=== PATIENT | female | born 1980 | race Caucasian/White ===

== ENCOUNTER 2017-08-22 18:26 | Outpatient (CLI) | payer MEDICAID ==
[~2017-08-22] VITALS: Ht 162.6 cm; Wt 114.3 kg
[2017-08-22] MEDS ORDERED: ONDA4TAB8 SL (18:53)
[2017-08-22] MEDS ORDERED: ACET-789 PO (18:53)
[2017-08-22] MEDS ORDERED: PREN-37 PO (18:53)
[2017-08-22 19:00] VITALS: BP 124/68
[2017-08-22 19:20] VITALS: BP 120/69
--- NOTE | 2017-08-23 20:57 | Physician Query-Final Dx ---
ANIRUDH HERNANDEZ 08/23/17 2057: Clinic Account Progress/Dx Physician Query: Please give diagnosis Date of Service Aug 22, 2017 at 18:26 JOSSE FERNANDEZ DO 08/25/17 1631: Clinic Account Progress/Dx DIAGNOSIS: Diagnosis Gestational Edema, Third Trimester - O12.03 37 weeks gestation of - Z3A.37 False Labor, Unspecified - O47.9 ANIRUDH HERNANDEZ Aug 23, 2017 20:57 JOSSE FERNANDEZ DO August 25, 2017 16:31
== END 2017-08-22 20:13 | disposition home or self-care (01) ==
LOC: WSo 18:26 → LDRP 18:27 → WSo 20:13
PROVIDERS: ATTEND Family Medicine
DX: O12.03 Gestational edema, third trimester (principal); O47.1 False labor at or after 37 completed weeks of gestation; Z3A.37 37 weeks gestation of pregnancy
CPT/HCPCS: 99213

== ENCOUNTER 2018-09-07 07:05 | Inpatient (IN) | payer MEDICAID ==
[2018-09-07] VITALS (71 sets, daily range): BP systolic 85–139; BP diastolic 46–106
[~2018-09-07] VITALS: Ht 162.6 cm; Wt 113.9 kg
[~2018-09-07 07:05] MED LIST: ACET-789 PO; ONDA4TAB8 SL; PREN-37 PO
--- NOTE | 2018-09-07 07:05 | NUR ---
ROSA M HESS presented to unit via ambulation from home, accompanied by SO, for INDUCTION. ROSA M HESS weighed, gowned, voided, and to bed. EFHM and TOCO applied, VS taken. ROSA M HESS oriented to bed controls, call light, TV, heat, and A/C controls.
--- OUTSIDE RECORDS SUMMARY | 2018-09-07 07:17 | XMS REPORT | Continuity of Care Document ---
Author Author Chrissy Espinoza [facility] Chrissy Nithin [facility] Address Unknown Phone Unavailable Support Name Relationship Address Phone JEFF ENRIQUEZ M.D. Caregiver [facility] [address] [facility] [address] [place] [address] Unavailable WANDA GONSALVES Next Of Kin [address] [place], [place] [phone] Insurance Providers Guarantor Kareen Hess Address [address] [place] [address] Payer Self Pay Insurance Subscriber's Name Kareen Hess Relationship 01 Self / Same As Patient Advance Directives No advance directive information available. Chief Complaint and Reason for Visit Chief Complaint Abdominal Pain Reason for Visit First trimester Leukocytosis Nausea and vomiting during prior to 22 weeks gestation Intermittent lower abdominal pain Problems Active ProblemsNo active problem information available. Past Problems Medical Problem Onset Date Status Achilles tendinitis Unknown Acute Allergic reaction Unknown Acute First trimester Unknown Acute Intermittent lower abdominal pain Unknown Acute Leukocytosis Unknown Acute Nausea and vomiting during prior to 22 weeks gestation Unknown Acute Medications Current Home Medications Medication Dose Units Route Directions Days Qty Instructions Start Date Ondansetron Hcl (Zofran) 4 Mg Tab 4 Mg Oral Every 8 Hours As Needed for Nausea 14 Tablet 01/29/17 Vit W/ Ferrous Fumara () Tab 1 X Oral Vit W/ Ferrous Fumara ( Complete) Complete Tab 1 X Oral Daily for 30 Days 30 Tablet 01/29/17 Social History Social History Problem Response Recorded Date/Time Onset Date Status Smoking Status Heavy Tobacco Smoker 01/29/2017 3:49pm Not Applicable Not Applicable Smoking Status Start Date Stop Date Heavy Tobacco Smoker Hospital Discharge Instructions No hospital discharge instruction information available. Plan of Care Discharge Date 01/29/17 5:00pm Disposition 01 HOME, SELF-CARE Condition at Discharge Improved Instructions/Education Provided Nausea and Vomiting in (ED) Abdominal Pain in (ED) First Trimester (ED) Prescriptions See Medication Section Referrals ОЛЬГА MONTAÑO M.D. Address: [facility]. [place] [address] [place] [address] Note: Call to establish OB care during Additional Instructions/Education Take Zofran as prescribed for nausea. Take daily vitamins. Take Tylenol if needed for pain. Followup with your OB physician or one listed here. Return to the ER if you develop fevers or worsening lower abdominal pain. White blood cell count was elevated today, which can be common during , but make sure your doctor repeats this. Functional Status No functional status information available. Allergies, Adverse Reactions, Alerts Allergen Type Severity Reaction Status Last Updated Aspirin ([id number]) Allergy Unknown Nausea/Vomiting Active 11/19/16 Immunizations No immunization information available. Vital Signs Acute Vital Signs Vital Response Date/Time Blood Pressure 117/68 mm Hg 01/29/2017 5:09pm Blood Pressure Mean 84 mm Hg 01/29/2017 5:09pm Temperature (Fahrenheit) 97.8 degrees F (96.0 - 99.9) 01/29/2017 3:42pm Temperature (Calculated Celsius) 36.33521 degrees C 01/29/2017 3:42pm Temperature Source Oral 01/29/2017 3:42pm Pulse Pulse Rate: ED 100 bpm 01/29/2017 5:09pm Respiratory Rate 16 breaths per minute (10 - 20) 01/29/2017 5:09pm Height (Feet) 5 ft 01/29/2017 3:42pm Height (Inches) 4.0 in. 01/29/2017 3:42pm Weight (Pounds) 195.0 lbs 01/29/2017 3:42pm Height 5 ft 4 in 01/29/2017 3:42pm Weight 195 lb 01/29/2017 3:42pm Body Mass Index 33.5 kg/m^2 01/29/2017 3:42pm Results Laboratory Results Test Name Result Units Flags Reference Collection Date/Time Result Date/ Time Comments White Blood Count 17.7 K/uL H 5.0-10.0 01/29/2017 4:15pm 01/29/2017 4: 26pm Red Blood Count 4.90 M/uL 4.20-5.40 01/29/2017 4:15pm 01/29/2017 4: 26pm Hemoglobin 14.9 g/dL 12.0-16.0 01/29/2017 4:1501/29/2017 4:26pm Hematocrit 43.6 % 38.0-47.0 01/29/2017 4:1501/29/2017 4:26pm Mean Corpuscular Volume 89.0 fL 82.0-100.0 01/29/2017 4:15pm 2016 4:26pm Mean Corpuscular Hemoglobin 30.4 pg 26.0-33.0 01/29/2017 4:152016 4:26pm Mean Corpuscular Hemoglobin Concent 34.2 g/dL 31.0-36.0 01/29/2017 4: 1501/29/2017 4:26pm Red Cell Distribution Width 13.0 % 11.5-14.5 01/29/2017 4:152016 4:26pm RDW Standard Deviation 42.4 fL 36.4-46.3 01/29/2017 4:1501/29/2017 4 :26pm Platelet Count 300 K/uL 130-400 01/29/2017 4:1501/29/2017 4:26pm Mean Platelet Volume 9.2 fL 7.0-11.0 01/29/2017 4:15pm 01/29/2017 4: 26pm Neutrophils (%) (Auto) 67.4 % 42.0-75.0 01/29/2017 4:01/29/2017 4: 26pm Lymphocytes (%) (Auto) 24.4 % 16.0-44.0 01/29/2017 4:1501/29/2017 4: 26pm Monocytes (%) (Auto) 5.7 % 2.0-9.0 01/29/2017 4:1501/29/2017 4:26pm Eosinophils (%) (Auto) 1.6 % 0-7.0 01/29/2017 4:1501/29/2017 4:26pm Basophils (%) (Auto) 0.3 % 0-1 01/29/2017 4:1501/29/2017 4:26pm Immature Granulocyte % (Auto) 0.6 % H 0-0.5 01/29/2017 4:2016 4:26pm Nucleated Red Blood Cells % 0.0 /100WBC 0-0 01/29/2017 4:15pm 2016 4:26pm Neutrophils # (Auto) 11.9 K/uL H 1.9-8.0 01/29/2017 4:15pm 01/29/2017 4: 26pm Lymphocytes # (Auto) 4.3 K/uL 0.9-5.2 01/29/2017 4:15pm 01/29/2017 4: 26pm Monocytes # (Auto) 1.0 K/uL 0.16-1.0 01/29/2017 4:15pm 01/29/2017 4: 26pm Eosinophils # (Auto) 0.3 K/uL 0-0.8 01/29/2017 4:15pm 01/29/2017 4: 26pm Basophils # (Auto) 0.1 K/uL 0-0.2 01/29/2017 4:15pm 01/29/2017 4:26pm Immature Granulocyte # (Auto) 0.10 K/uL 0-0.40 01/29/2017 4:15pm 2016 4:26pm Nucleated Red Blood Cells # 0.00 K/uL 0.0-0.012 01/29/2017 4:15pm 01/29 4:26pm Urine Color YELLOW 01/29/2017 4:00pm 01/29/2017 4:30pm Urine Turbidity Negative Negative 01/29/2017 4:00pm 01/29/2017 4: 30pm Urine Specific [place] 1.019 1.000-1.050 01/29/2017 4:00pm 2016 4:30pm Urine Glucose (UA) Negative Negative 01/29/2017 4:00pm 01/29/2017 4: 30pm Urine Protein Negative Negative 01/29/2017 4:00pm 01/29/2017 4:30pm Urine Urobilinogen NORMAL Normal 01/29/2017 4:00pm 01/29/2017 4:30pm Urine Bilirubin Negative Negative 01/29/2017 4:00pm 01/29/2017 4: 30pm Urine pH 5.0 5.0-8.0 01/29/2017 4:00pm 01/29/2017 4:30pm Urine Ketones Negative Negative 01/29/2017 4:00pm 01/29/2017 4:30pm Urine Leukocyte Esterase Negative Negative 01/29/2017 4:00pm 2016 4:30pm Urine Blood Negative Negative 01/29/2017 4:00pm 01/29/2017 4:30pm NITRITE, URINE Negative Negative 01/29/2017 4:00pm 01/29/2017 4:30pm Urine RBC (Auto) 0.3 /hpf 0.0-2.0 01/29/2017 4:00pm 01/29/2017 4:30pm Urine WBC (Auto) 0.5 /hpf 0.0-5.0 01/29/2017 4:00pm 01/29/2017 4:30pm Urine Epithelial Cells (Auto) 1.1 /lpf 0.0-10.0 01/29/2017 4:00pm 01/29 4:30pm Urine Casts (Auto) 0.0 /lpf 0.0-10.0 01/29/2017 4:00pm 01/29/2017 4: 30pm Urine Bacteria (Auto) 27.1 /hpf 0.0-500.0 01/29/2017 4:00pm 01/29/2017 4:30pm Random Glucose 85 mg/dL 65-115 01/29/2017 4:15pm 01/29/2017 4:43pm Blood Urea Nitrogen 10 mg/dL 8-25 01/29/2017 4:15pm 01/29/2017 4:43pm Creatinine 0.61 mg/dL L 0.9-1.6 01/29/2017 4:15pm 01/29/2017 4:43pm Glomerular Filtration Rate Calc 112.28 mL/min 01/29/2017 4:15pm 01/29 4:43pm MULTIPLY RESULT BY 1.210 IF THE PATIENT IS -TOGOLESE Units are mL/min/1.73 m2 > 60 Normal kidney function 30-59 Moderately decreased kidney function 15-29 Severely decreased kidney function <15 End-stage kidney failure BUN/Creatinine Ratio 16.4 01/29/2017 4:15pm 01/29/2017 4:43pm Sodium Level 134 mEq/L 133-145 01/29/2017 4:15pm 01/29/2017 4:43pm Potassium Level 4.0 mEq/L 3.5-5.1 01/29/2017 4:15pm 01/29/2017 4:43pm Chloride Level 101 mEq/L 98-116 01/29/2017 4:15pm 01/29/2017 4:43pm Carbon Dioxide Level 26 mEq/L 22-34 01/29/2017 4:15pm 01/29/2017 4: 43pm Anion Gap 11.0 6-13 01/29/2017 4:15pm 01/29/2017 4:43pm Calcium Level 9.1 mg/dL 8.2-10.6 01/29/2017 4:15pm 01/29/2017 4:43pm Total Protein 7.7 gm/dL 6.0-8.4 01/29/2017 4:15pm 01/29/2017 4:43pm Albumin 3.8 gm/dL 3.2-5.0 01/29/2017 4:15pm 01/29/2017 4:43pm Globulin 3.9 gm/dL H 2.0-3.0 01/29/2017 4:15pm 01/29/2017 4:43pm Albumin/Globulin Ratio 1.0 L 1.4-2.4 01/29/2017 4:15pm 01/29/2017 4: 43pm Total Bilirubin 0.6 mg/dL 0.1-1.3 01/29/2017 4:15pm 01/29/2017 4:43pm Alkaline Phosphatase 93 U/L 35-125 01/29/2017 4:15pm 01/29/2017 4:43pm Aspartate Amino Transf (AST/SGOT) 21 U/L 5-40 01/29/2017 4:15pm 2016 4:43pm Alanine Aminotransferase (ALT/SGPT) 20 U/L 5-40 01/29/2017 4:15pm 01/29 4:43pm Lipase 31 U/L 8-57 01/29/2017 4:15pm 01/29/2017 4:43pm Human Chorionic Gonadotropin, Quant 83739 mIU/mL 01/29/2017 4:15pm 4:58pm INTERPRETATION: SUFFICIENT VARIABILITY EXISTS AMONG hCG CONCENTRATIONS THAT A SINGLE VALUE CANNOT BE USED TO DATE PREGNANCIES ACCURATELY, NOR CAN A SINGLE DETERMINATION BE USED TO PREDICT VIABILITY. RANGE OF EXPECTED VALUES: TIME POST CONCEPTION COMMON UNITS mIU/mL 7-10 DAYS >3.0 30 DAYS 100.0 TO 5,000.0 40 DAYS >2000.0 10 WEEKS 50,000.0 TO 140,000.0 14 WEEKS 10,000.0 TO 50,000.0 Procedures Procedure Status Date Provider(s) THER/PROPH/DIAG INJ SC/IM Completed 01/14/17 JEFF ENRIQUEZ M.D. Encounters Encounter Location Arrival/Admit Date Discharge/Depart Date Attending Provider Departed Emergency Room [facility] 01/29/17 3:40pm 5:00pm JEFF ENRIQUEZ M.D. Departed Emergency Room [facility] 01/14/17 4:19pm 4:38pm JEFF ENRIQUEZ M.D. Departed Emergency Room [facility] 11/19/16 5:31pm 6:45pm GIL SERRANO M.D. Recent Diagnosis
--- OUTSIDE RECORDS SUMMARY | 2018-09-07 07:17 | XMS REPORT ---
Author Author DEDRAJULIÁN [facility] Address [address] [place] [address] Care Team Providers Care Secretary To The Vice President Name Role Phone JULIÁN COLMENARES Unavailable PROBLEMS Unknown Problems ALLERGIES No Information ENCOUNTERS Encounter Location Date Diagnosis [facility] [address] [place] [address] August, [facility] [address] [place] [address] August, [facility] [address] [place] [address] August, [facility] [address] [place] [address] August, [facility] [address] [place] [address] Jul, [facility] [id number] [place] [phone] Jul, [facility] [address] [place] [address] Jul, [facility] [address] [place] [address] Jul, Morbid obesity E66.01 ; Supervision of other normal Z34.80 ; 33 weeks gestation of Z3A.33 and S/P tooth extraction K08.409 [facility] [address] [place] [id number] Jul, Caries K02.[address] [address] Jul, [facility] [address] [place] [address] Jun, Supervision of other normal Z34.80 ; Morbid obesity E66.01 ; 28 weeks gestation of Z3A.28 ; Dental examination Z01.20 and Mouth pain K13.79 [facility] [id number] [id number] Jun, Caries K02.9 and Dental examination Z01.20 [facility] [address] [address] Jun, 2018 [facility] [address] [place] [address] 18 Jun, 2018 Upper respiratory tract infection, unspecified type J06.9 and Morbid obesity E66.01 [facility] [address] [address] 14 Jun, 2018 in multigravida Z34.80 [facility] [address] [place] [address] Jun, [facility] [address] [place] [address] 12 Jun, 2018 Supervision of other normal Z34.80 ; Morbid obesity E66.01 and Mouth pain K13.79 [facility] [address] [place] [address] Jun, in multigravida Z34.80 [facility] [address] [place] [address] Jun, [facility] [address] [address] Jun, [facility] [address] [place] [address] Jun, in multigravida Z34.80 [facility] [address] [address] May, [facility] [id number] [place] [address] May, in multigravida Z34.80 and 28 weeks gestation of Z3A.28 [facility] [address] [address] 14 May, 2018 Dental examination Z01.20 and Caries K02.9 [facility] [address] [facility] [id number] [place] [address] 14 May, 2018 Mouth pain K13.79 [facility] [address] [facility] [id number] [place] [address] 14 May, 2018 IMMUNIZATIONS No Known Immunizations SOCIAL HISTORY Never Assessed REASON FOR VISIT Med Change PLAN OF CARE VITAL SIGNS MEDICATIONS Medication Instructions Dosage Frequency Start Date End Date Duration Status Cefdinir 300 MG Orally 2 times a day 1 capsule 12h Jun, 7 days Active RESULTS No Results PROCEDURES No Known procedures INSTRUCTIONS MEDICATIONS ADMINISTERED No Known Medications MEDICAL (GENERAL) HISTORY Type Description Date Medical History due August Surgical History tonsillectomy and adenoidectomy Hospitalization History Hemorrhage after delivery, required transfusion 2017 Hospitalization History childbirth only
--- OUTSIDE RECORDS SUMMARY | 2018-09-07 07:18 | XMS REPORT | Continuity of Care Document ---
Author Author Chrissy Espinoza [facility] Chrissy Espinoza [facility] Address Unknown Phone Unavailable Support Name Relationship Address Phone JEFF ENRIQUEZ M.D. Caregiver [facility] [address] [facility] [address] [place] [address] Unavailable WANDA GONSALVES Next [place] [address] Insurance Providers Guarantor Kareen Hess Address [address] [place] [address] Payer Self Pay Insurance Subscriber's Name Kareen Hess Relationship 01 Self / Same As Patient Advance Directives No advance directive information available. Chief Complaint and Reason for Visit Chief Complaint Rash Reason for Visit Allergic reaction Problems Active ProblemsNo active problem information available. Past Problems Medical Problem Onset Date Status Achilles tendinitis Unknown Acute Allergic reaction Unknown Acute Medications Current Home Medications Medication Dose Units Route Directions Days Qty Instructions Start Date Hydroxyzine Hcl (Atarax) 25 Mg Tab 25 Mg Oral Three Times A Day for Itch 15 Tablet 01/14/17 Prednisone 50 Mg Tab 50 Mg Oral Daily for Inflammation 4 Days 4 Tablet 01/14/17 Social History Social History Problem Response Recorded Date/Time Onset Date Status Smoking Status Heavy Tobacco Smoker 01/14/2017 4:23pm Not Applicable Not Applicable Smoking Status Start Date Stop Date Heavy Tobacco Smoker Hospital Discharge Instructions No hospital discharge instruction information available. Plan of Care Discharge Date 01/14/17 4:38pm Disposition 01 HOME, SELF-CARE Condition at Discharge Stable Instructions/Education Provided General Allergic Reaction (ED) Prescriptions See Medication Section Referrals SCOTT BOWERS M.D. Address: [address] [place] [address] Additional Instructions/Education Take steroids and Atarax as prescribed. Followup with PCP listed as needed. Return to emergency department if you develop difficulty speaking/breathing/swallowing, have skin peeling or blistering occur, or any other emergent or concerning symptoms develop. Functional Status No functional status information available. Allergies, Adverse Reactions, Alerts Allergen Type Severity Reaction Status Last Updated Aspirin ([id number]) Allergy Unknown Nausea/Vomiting Active 11/19/16 Immunizations No immunization information available. Vital Signs Acute Vital Signs Vital Response Date/Time Blood Pressure 114/75 mm Hg 01/14/2017 4:20pm Blood Pressure Mean 88 mm Hg 01/14/2017 4:20pm Temperature (Fahrenheit) 97.7 degrees F (96.0 - 99.9) 01/14/2017 4:20pm Temperature (Calculated Celsius) 36.88608 degrees C 01/14/2017 4:20pm Temperature Source Oral 01/14/2017 4:20pm Pulse Pulse Rate: ED 80 bpm 01/14/2017 4:20pm Respiratory Rate 16 breaths per minute (10 - 20) 01/14/2017 4:20pm Height (Feet) 5 ft 01/14/2017 4:20pm Height (Inches) 3.0 in. 01/14/2017 4:20pm Weight (Pounds) 190.0 lbs 01/14/2017 4:20pm Height 5 ft 3 in 01/14/2017 4:20pm Weight 190 lb 01/14/2017 4:20pm Body Mass Index 33.7 kg/m^2 01/14/2017 4:20pm Results No relevant diagnostic test, laboratory data and/or discharge summary information available. Procedures No procedure information available. Encounters Encounter Location Arrival/Admit Date Discharge/Depart Date Attending Provider Departed Emergency Room [facility] 01/14/17 4:19pm 4:38pm JEFF ENRIQUEZ M.D. Departed Emergency Room [facility] 11/19/16 5:31pm 6:45pm GIL SERRANO M.D. Recent Diagnosis
--- OUTSIDE RECORDS SUMMARY | 2018-09-07 07:18 | XMS REPORT ---
Author Author Rubi Garcia Organization [facility] Address [address] [place] [address] Care Team Providers Care Engineering Project Designer Name Role Phone Rubi Garcia Unavailable PROBLEMS Type Condition ICD9-CM Code [id number] Code Onset Dates Condition Status SNOMED Code Problem Amenorrhea, unspecified N91.2 Active [id number] ALLERGIES Substance Reaction Event Type Date Status asprin stomach upset Non Drug Allergy Mar, Active SOCIAL HISTORY Never Assessed PLAN OF CARE Activity Details Follow Up 4 Weeks Reason: Pending Test AFP Tetra VITAL SIGNS Height 63 in 2017-04-05 MEDICATIONS Medication Instructions Dosage Frequency Start Date End Date Duration Status Doxylamine-Pyridoxine 10-10 MG Orally Once a day 2 tablets at bedtime on an empty stomach 24h Jan, 30 day(s) Active - Orally Once a day 1 tablet 24h Active Zofran ODT 4 MG Orally every 8 hrs 1 tablet on the tongue and allow to dissolve 8h Active Clindamycin HCl 300 MG Orally every 8 hrs 1 capsule 8h Feb, 07 days Active RESULTS Name Result Date Reference Range Venipuncture 2017-04-05 PROCEDURES Procedure Date Ordered Result Body Site DRAW FEE Apr 05, 2017 IMMUNIZATIONS No Known Immunizations MEDICAL (GENERAL) HISTORY Type Description Date Surgical History tonsillectomy and adenoidectomy
--- OUTSIDE RECORDS SUMMARY | 2018-09-07 07:18 | XMS REPORT ---
Author Author Rubi Garcia Organization [facility] Address [address] [place] [address] Care Team Providers Care Geomorphologist Name Role Phone Rubi Garcia Unavailable PROBLEMS Type Condition ICD9-CM Code [id number] Code Onset Dates Condition Status SNOMED Code Problem Amenorrhea, unspecified N91.2 Active [id number] ALLERGIES No Information SOCIAL HISTORY Never Assessed PLAN OF CARE Activity Details Follow Up 4 Weeks Reason: VITAL SIGNS MEDICATIONS Medication Instructions Dosage Frequency Start Date End Date Duration Status Zofran ODT 4 MG Orally every 8 hrs 1 tablet on the tongue and allow to dissolve 8h Active Clindamycin HCl 300 MG Orally every 8 hrs 1 capsule 8h Feb, 07 days Active - Orally Once a day 1 tablet 24h Active Doxylamine-Pyridoxine 10-10 MG Orally Once a day 2 tablets at bedtime on an empty stomach 24h Jan, 30 day(s) Active RESULTS No Results PROCEDURES No Known procedures IMMUNIZATIONS No Known Immunizations MEDICAL (GENERAL) HISTORY Type Description Date Surgical History tonsillectomy and adenoidectomy
--- OUTSIDE RECORDS SUMMARY | 2018-09-07 07:18 | XMS REPORT | Continuity of Care Document ---
Author Organization Unknown Address Unknown Allergies There is no data. Medications There is no data. Problems There is no data. Procedures There is no data. Results Test Result Range A1C - 07/04/18 12:18 HEMOGLOBIN A1c 5.5 % of total Hgb <5.7 CULTURE, GROUP B STREP WITH SUSCEPTIBILITY - 08/24/18 15:11 CULTURE, GROUP B STREP WITH SUSCEPTIBILITY SEE NOTE NRG Encounters ACCT No. Visit Date/Time Discharge Status Pt. Type Provider Facility Loc./Unit Complaint [id number] 08/30/2018 14:30:00 08/30/2018 23:59:59 [facility] Outpatient NITA GUZMAN DO [facility] BENITA [id number] 08/24/2018 14:15:00 Document Registration [id number] 07/04/2018 12:00:00 Document Registration [id number] 03/05/2017 04:49:28 [facility] Unknown
--- OUTSIDE RECORDS SUMMARY | 2018-09-07 07:18 | XMS REPORT ---
Author Author Flo Tolbert Organization [facility] Address [address] [facility] [address] [place], [place] [id number] Care Team Providers Care Neonatal Intensive Care Nurse Name Role Phone Flo Tolbert Unavailable PROBLEMS Type Condition ICD9-CM Code [id number] Code Onset Dates Condition Status SNOMED Code Problem Amenorrhea, unspecified N91.2 Active [id number] ALLERGIES No Information SOCIAL HISTORY Never Assessed PLAN OF CARE VITAL SIGNS MEDICATIONS Unknown Medications RESULTS No Results PROCEDURES No Known procedures IMMUNIZATIONS No Known Immunizations MEDICAL (GENERAL) HISTORY Type Description Date Surgical History tonsillectomy and adenoidectomy
--- OUTSIDE RECORDS SUMMARY | 2018-09-07 07:18 | XMS REPORT | Continuity of Care Document ---
Author Author Chrissy Espinoza [facility] Chrissy Nithin Espinoza [facility] Address Unknown Phone Unavailable Support Name Relationship Address Phone GIL SERRANO M.D. Caregiver [employer] [address] [place] [address] Unavailable WANDA GONSALVES Next Of [place] [address] Insurance Providers Guarantor Kareen Hess Address [address] [place] [address] Payer Self Pay Insurance Subscriber's Name Kareen Hess Relationship 01 Self / Same As Patient Chief Complaint and Reason for Visit Chief Complaint Ankle Pain Reason for Visit Achilles tendinitis Problems Past Problems Medical Problem Onset Date Achilles tendinitis Unknown Medications Current Home Medications Medication Dose Units Route Directions Days Qty Instructions Start Date Tramadol Hcl 50 Mg Tab 50 Mg Oral Three Times A Day as needed for Pain 10 Tablet 11/19/16 Social History Social History Problem Response Recorded Date/Time Onset Date Status Smoking Status Heavy Tobacco Smoker 11/19/2016 5:34pm Not Applicable Not Applicable Query Response Start Date Stop Date Smoking Status Heavy Tobacco Smoker Hospital Discharge Instructions No hospital discharge instructions. Plan of Care Discharge Date 11/19/16 6:45pm Disposition 01 HOME, SELF-CARE Condition at Discharge Stable Instructions/Education Provided Achilles Tendinitis (ED) Prescriptions See Medication Section Additional Instructions/Education Patient is instructed to elevate and ice the foot as much as possible. Bear weight as practical. Tylenol Advil for pain. Use pain medicines sparingly as needed. Followup with PCP in 2-5 days. Functional Status No functional status results. Allergies, Adverse Reactions, Alerts Allergen Type Severity Reaction Status Last Updated Aspirin ([id number]) Allergy Unknown Nausea/Vomiting Active 11/19/16 Immunizations No immunization records. Vital Signs Acute Vital Signs Vital Response Date/Time Blood Pressure 122/78 mm Hg 11/19/2016 6:44pm Blood Pressure Mean 93 mm Hg 11/19/2016 6:44pm Temperature (Fahrenheit) 97.5 degrees F (96.0 - 99.9) 11/19/2016 5:31pm Temperature (Calculated Celsius) 36.91956 degrees C 11/19/2016 5:31pm Temperature Source Oral 11/19/2016 5:31pm Pulse Pulse Rate: ED 88 bpm 11/19/2016 6:44pm Respiratory Rate 16 breaths per minute (10 - 20) 11/19/2016 6:44pm Height (Feet) 5 ft 11/19/2016 5:31pm Height (Inches) 3.0 in. 11/19/2016 5:31pm Weight (Pounds) 189.0 lbs 11/19/2016 5:31pm Height 5 ft 3 in 11/19/2016 5:31pm Weight 189 lb 11/19/2016 5:31pm Body Mass Index 33.5 kg/m^2 11/19/2016 5:31pm Results No known relevant diagnostic tests, laboratory data and/or discharge summary. Procedures No known history of procedures. Encounters Encounter Location Arrival/Admit Date Discharge/Depart Date Attending Provider Departed Emergency Room Chrissy Espinoza [facility] 11/19/16 5:31pm 6:45pm GIL SERRANO M.D. Recent Diagnosis
[2018-09-07] MEDS ORDERED: OXYTOCIN/NORMAL SALINE 500 ML IV SCH ×2 (07:40→18:04)
[2018-09-07] MEDS ORDERED: MINERAL OIL CONCENTRATE 99.9% 15 ML UDC TOP PRN (07:45)
[2018-09-07] MEDS: D5 LR IV SOLUTION 1,000 ML IV SCH ×2 (08:11→15:12)
[2018-09-07 08:28] LABS: BASOPHILS % (AUTO) 0 % (0-10); EOSINOPHILS # (AUTO) 0.3 10^3/uL (0.0-0.3); EOSINOPHILS % (AUTO) 2 % (0-10); HEMATOCRIT 36 % (35-52); HEMOGLOBIN 12.4 G/DL (11.5-16.0); LYMPHOCYTES # (AUTO) 3.4 X 10^3 (1.0-4.0); LYMPHOCYTES % (AUTO) 16 % (12-44); MEAN CORPUSCULAR HEMOGLOBIN 30 PG (25-34); MEAN CORPUSCULAR HGB CONC 34 G/DL (32-36); MEAN CORPUSCULAR VOLUME 87 FL (80-99); MEAN PLATELET VOLUME 9.9 FL (7.4-10.4); MONOCYTES # (AUTO) 1.4 X 10^3 (0.0-1.0); MONOCYTES % (AUTO) 7 % (0-12); NEUTROPHILS # (AUTO) 15.6 X 10^3 (1.8-7.8); NEUTROPHILS % (AUTO) 75 % (42-75); PLATELET COUNT 354 10^3/uL (130-400); RED CELL DISTRIBUTION WIDTH 13.3 % (10.0-14.5); WHITE BLOOD COUNT 20.6 10^3/uL (4.3-11.0)
[2018-09-07] MEDS ORDERED: SUFENTA 0.6MCG/ML BUPIVA 0.125 100 ML ONE (08:31)
--- NOTE | 2018-09-07 08:54 | NUR ---
Dr. Oliveira updated on SVE, ctx pattern, CBC, and comfortable with epidural. Orders received for UA due to elevated WBC and urine drug screen.
[2018-09-07 09:09] LABS: BAND NEUTROPHILS 4 %; EOSINOPHILS % (MANUAL) 1 %; LYMPHOCYTES % (MANUAL) 15 %; MONOCYTES % (MANUAL) 6 %; NEUTROPHILS % (MANUAL) 74 %; RBC MORPH NORMAL
[2018-09-07 09:18] LABS: BILIRUBIN,URINE NEGATIVE (NEGATIVE); CLARITY,URINE CLEAR; COLOR,URINE YELLOW; GLUCOSE, URINE (UA) NEGATIVE (NEGATIVE); KETONES,URINE NEGATIVE (NEGATIVE); LEUKOCYTE ESTERASE ,URINE NEGATIVE (NEGATIVE); NITRITE,URINE NEGATIVE (NEGATIVE); PH,URINE 6.5 (5-9); PROTEIN,URINE NEGATIVE (NEGATIVE); UROBILINOGEN,URINE NORMAL (NORMAL)
[2018-09-07 09:27] LABS: BACTERIA,URINE TRACE /HPF; SQUAMOUS EPITHELIAL CELL,UR 0-2 /HPF
[2018-09-07] MEDS ORDERED: fentaNYL INJECTION 100 MCG/2 ML AMP ONE (09:28)
[2018-09-07] MEDS ORDERED: BUPIVACAINE 0.25% 30 ML (SENSORCAINE) VIAL ONE (09:28)
[2018-09-07] MEDS ORDERED: LIDOCAINE PF 2% 5 ML (XYLOCAINE) VIAL ONE (09:28)
[2018-09-07 09:37] LABS: AMPHETAMINE SCREEN, URINE NEGATIVE (NEGATIVE); BARBITURATE SCREEN URINE NEGATIVE (NEGATIVE); BENZODIAZEPINES SCREEN URINE NEGATIVE (NEGATIVE); CANNABINOID SCREEN, URINE NEGATIVE (NEGATIVE); COCAINE SCREEN URINE NEGATIVE (NEGATIVE); METHADONE STAT NEGATIVE (NEGATIVE); METHAMPHETAMINE SCREEN URINE S NEGATIVE (NEGATIVE); OPIATE SCREEN URINE NEGATIVE (NEGATIVE); OXYCODONE STAT NEGATIVE (NEGATIVE); PROPOXYPHENE STAT NEGATIVE (NEGATIVE); TRICYCLIC ANTIDEPRESSANTS SCRE NEGATIVE (NEGATIVE)
--- NOTE | 2018-09-07 09:40 | NUR ---
Dr. Oliveira notified of UA and drug screen results.
[2018-09-07] MEDS ORDERED: LACTATED RINGERS 1,000 ML IV SCH (11:01)
[2018-09-07] MEDS ORDERED: EPIDURAL (SUFENTA 0.6MCG/ML BUPIVA 0.125%) 100 ML BAG EPI PRN (11:15)
[2018-09-07] MEDS ORDERED: diphenhydrAMINE 50 MG/ML INJ (BENADRYL) IV PRN (11:15)
[2018-09-07] MEDS ORDERED: METOCLOPRAMIDE INJ 10 MG/2 ML (REGLAN) IV PRN (11:15)
[2018-09-07] MEDS ORDERED: NALOXONE 0.4 MG/ML 1 ML (NARCAN) VIAL IV PRN ×2 (11:15)
[2018-09-07] MEDS ORDERED: ONDANSETRON 4 MG/2 ML (SDV) Z0FRAN IV PRN (11:15)
[2018-09-07] MEDS ORDERED: CATHETER FLUSH 10 ML SYR IV SCH ×2 (14:00→22:00)
--- NOTE | 2018-09-07 16:08 | History & Physical-OB ---
OB - Chief Complaint & HPI Date/Time Date of Admission: Date of Admission: September 07, 2018 at 07:05 Date seen by a Provider: September 07, 2018 Time Seen by a Provider: 16:04 Chief Complaint/History OB-Reason for Admission/Chief: Induction of Labor Hx : 9 Hx Para: 5 Expected Date of Delivery: September 15, 2018 Gestational Age in Weeks: 38 Gestational Age in Days: 6 Indication for induction: maternal discomfort, history of rapid labor Allergies and Home Medications Allergies Coded Allergies: Aspirin (Verified Allergy, Unknown, 07/17/05) Home Medications Acetaminophen with Codeine 1 Each Tablet, 1 EACH PO Q6H PRN for ABDOMINAL PAIN, (Reported) Ondansetron 4 Mg Tab.rapdis, 4 MG SL Q8H PRN for NAUSEA/VOMITING-1ST LINE, ( Reported) Vit/Iron Fumarate/FA 1 Each Tablet, 1 EACH PO DAILY, (Reported) Patient Home Medication List Home Medication List Reviewed: Yes OB - History Hx of Present Care: Yes Ultrasounds: Normal mid trimester US Obstetrical Complications: None Medical Complications: None Delivery History Adverse Rxn to Tranfusion: No Patient Past Medical History previously healthy Social History/Family History HIV/AIDS: No Sexually Transmitted Disease: No Alcohol Use: Denies Use Recreational Drug Use: No OB - Admission Exam Physical Exam Vitals: Vital Signs 09/07/18 09/07/18 12:50 15:05 Temp 97.6 Pulse 87 Resp 16 B/P (MAP) 113/56 (75) Pulse Ox 97 O2 Delivery Room Air HEENT: NCAT Heart: Rhythm Normal Lungs: Clear Abdomen: Gravid Extremities: Normal Reflexes: Normal Cervical Dilatation: 6cm Effacement: 75% Station: -2 Membranes: Ruptured Amniotic Fluid: Clear Heart Rate: 130's Accelerations: Accelerations Present Decelerations: No Decelerations Short Term Variability: Present Senior Living Variability: Average (6-25) Contractions on Admission: None Intensity: Moderate Labs Laboratory Tests Test 09/07/18 07:10 09/07/18 08:05 Range/Units Urine Color YELLOW Urine Clarity CLEAR Urine pH 6.5 5-9 Urine Specific [place] 1.015 L 1.016-1.022 Urine Protein NEGATIVE NEGATIVE Urine Glucose (UA) NEGATIVE NEGATIVE Urine Ketones NEGATIVE NEGATIVE Urine Nitrite NEGATIVE NEGATIVE Urine Bilirubin NEGATIVE NEGATIVE Urine Urobilinogen NORMAL NORMAL MG/DL Urine Leukocyte Esterase NEGATIVE NEGATIVE Urine RBC (Auto) NEGATIVE NEGATIVE Urine RBC NONE /HPF Urine WBC NONE /HPF Urine Squamous Epithelial Cells 0-2 /HPF Urine Crystals NONE /LPF Urine Bacteria TRACE /HPF Urine Casts NONE /LPF Urine Mucus NEGATIVE /LPF Urine Culture Indicated NO Urine Opiates Screen NEGATIVE NEGATIVE Urine Oxycodone Screen NEGATIVE NEGATIVE Urine Methadone Screen NEGATIVE NEGATIVE Urine Propoxyphene Screen NEGATIVE NEGATIVE Urine Barbiturates Screen NEGATIVE NEGATIVE Ur Tricyclic Antidepressants Screen NEGATIVE NEGATIVE Urine Phencyclidine Screen NEGATIVE NEGATIVE Urine Amphetamines Screen NEGATIVE NEGATIVE Urine Methamphetamines Screen NEGATIVE NEGATIVE Urine Benzodiazepines Screen NEGATIVE NEGATIVE Urine Cocaine Screen NEGATIVE NEGATIVE Urine Cannabinoids Screen NEGATIVE NEGATIVE White Blood Count 20.6 H 4.3-11.0 10^3/uL Red Blood Count 4.15 L 4.35-5.85 10^6/uL Hemoglobin 12.4 11.5-16.0 G/DL Hematocrit 36 35-52 % Mean Corpuscular Volume 87 80-99 FL Mean Corpuscular Hemoglobin 30 25-34 PG Mean Corpuscular Hemoglobin Concent 34 32-36 G/DL Red Cell Distribution Width 13.3 10.0-14.5 % Platelet Count 354 130-400 10^3/uL Mean Platelet Volume 9.9 7.4-10.4 FL Neutrophils (%) (Auto) 75 42-75 % Lymphocytes (%) (Auto) 16 12-44 % Monocytes (%) (Auto) 7 0-12 % Eosinophils (%) (Auto) 2 0-10 % Basophils (%) (Auto) 0 0-10 % Neutrophils # (Auto) 15.6 H 1.8-7.8 X 10^3 Lymphocytes # (Auto) 3.4 1.0-4.0 X 10^3 Monocytes # (Auto) 1.4 H 0.0-1.0 X 10^3 Eosinophils # (Auto) 0.3 0.0-0.3 10^3/uL Basophils # (Auto) 0.0 0.0-0.1 10^3/uL Neutrophils % (Manual) 74 % Lymphocytes % (Manual) 15 % Monocytes % (Manual) 6 % Eosinophils % (Manual) 1 % Band Neutrophils 4 % Blood Morphology Comment NORMAL OB - Assessment/Plan/Diagnosis Assessment Assessment: induction of labor Admission Dx at 39 0/7 wga by LMP Admission Status: Inpatient Order (span 2 midnights) Reason for Inpatient Admission: Induction at 39 0/7 wga Plan Plan: Induction Induction Method: per Pitocin Protocol LINDSEY HERNANDEZ MD September 07, 2018 16:08
[2018-09-07] MEDS ORDERED: METHYLERGONOVINE 0.2 MG/ML (METHERGINE) AMP ONE (16:45)
--- NOTE | 2018-09-07 18:03 | OB Labor & Delivery Record ---
Vag Delivery Note Vag Delivery Note Date of Delivery: 09/07/18 Preoperative Diagnosis: Kareen Butler is a (38 /Para 9 / 5, Gestational Age (wks)38with [induction of labor] Postoperative Diagnosis: Same Surgeon: LINDSEY HERNANDEZ Junior Marketing Associate: [none] Anesthesia: [epidural] Delivery Type: [ after 2 pulls without progress with kiwi vaccum] Findings: [] Viable [male] infant, apgars [], weight [7 pounds 1 ounces] Lacerations: Intact placenta with 3 vessel cord. One loose nuchal cord delivered through. Estimated Blood Loss: [400] ml Complications: None Condition: Stable Description of Procedure: The patient is a 38 year old female who presented [for induction of labor]. She was admitted and informed consent was obtained. Her labor course was remarkable for [arrest of second stage] She progressed to complete dilatation and began to push. She was then set up for delivery. The 's head was delivered atraumatically in the [OA] position. The shoulders and remainder of the ' s body were then delivered without difficulty. Upon delivery, the head was held below the level of the perineum and the mouth and nares were bulb suctioned. The cord was doubly clamped and cut after the was placed on maternal abdomen. An intact placenta with 3-vessel cord was extracted manually after avulsion of the cord.~ Vigorous fundal massage was performed and the fundus was found to be firm. IV oxytocin was given. Examination of the vagina and perineum revealed no lacerations. Following the repair, sponge, instrument and needle counts were correct. Mom and baby were both in stable condition in the labor suite. Vitals - Labs Vital Signs - I&O Vital Signs Date Time Temp Pulse Resp B/P (MAP) Pulse Ox O2 Delivery O2 Flow Rate FiO2 09/07/18 16:05 97.1 98 16 117/74 (88) 95 Room Air 09/07/18 15:50 92 16 111/65 (80) 96 Room Air 09/07/18 15:35 83 16 106/57 (73) 98 Room Air 09/07/18 15:20 100 16 109/55 (73) 97 Room Air 09/07/18 15:05 87 16 113/56 (75) 97 Room Air 09/07/18 14:50 79 16 102/54 (70) 96 Room Air 09/07/18 14:35 82 16 109/59 (76) 96 Room Air 09/07/18 14:20 88 16 103/58 (73) 99 Room Air 09/07/18 14:05 84 16 126/59 (81) 97 Room Air 09/07/18 13:50 88 16 96/55 (69) 97 Room Air 09/07/18 13:35 84 16 96/58 (71) 96 Room Air 09/07/18 13:20 79 16 93/46 (62) 96 Room Air 09/07/18 13:05 78 16 103/54 (70) 96 Room Air 09/07/18 12:50 97.6 83 16 104/59 (74) 95 Room Air 09/07/18 12:35 82 16 107/59 (75) 94 Room Air 09/07/18 12:20 88 16 103/57 (72) 94 Room Air 09/07/18 12:05 88 16 103/57 (72) 94 Room Air 09/07/18 11:50 96 16 105/56 (72) 96 Room Air 09/07/18 11:45 100 16 103/55 (71) 96 Room Air 09/07/18 11:40 100 16 107/56 (73) 96 Room Air 09/07/18 11:35 100 16 106/56 (73) 98 Room Air 09/07/18 11:30 104 16 111/59 (76) 98 Room Air 09/07/18 11:28 102 16 115/58 (77) 98 Room Air 09/07/18 11:25 108 16 97/50 (66) 98 Room Air 09/07/18 11:15 107 16 109/59 (76) 94 Room Air 09/07/18 11:06 94 16 100/53 (69) 94 Room Air 09/07/18 11:03 114 16 100/59 (73) 96 Room Air 09/07/18 11:00 92 16 112/55 (74) 96 Room Air 09/07/18 10:57 86 16 112/56 (74) 97 Room Air 09/07/18 10:55 107 16 112/55 (74) 97 Room Air 09/07/18 10:50 90 16 110/55 (73) 97 Room Air 09/07/18 10:48 90 16 105/51 (69) 97 Room Air 09/07/18 10:44 90 16 108/58 (75) 97 Room Air 09/07/18 10:40 91 16 115/73 (87) 97 Room Air 09/07/18 10:38 91 16 112/74 (87) 97 Room Air 09/07/18 10:32 92 16 109/73 (85) 96 Room Air 09/07/18 10:27 92 16 103/55 (71) 96 Room Air 09/07/18 10:24 96 16 109/56 (73) 96 Room Air 09/07/18 10:22 96 16 102/55 (71) 96 Room Air 09/07/18 10:19 90 16 105/56 (72) 96 Room Air 09/07/18 10:16 97 16 111/60 (77) 94 Room Air 09/07/18 10:13 88 16 108/59 (75) 95 Room Air 09/07/18 10:10 84 16 105/57 (73) 95 Room Air 09/07/18 10:06 84 16 106/59 (75) 95 Room Air 09/07/18 10:03 80 16 102/59 (73) 96 Room Air 09/07/18 10:00 85 16 107/61 (76) Room Air 09/07/18 09:55 78 16 108/74 (85) Room Air 09/07/18 09:50 86 16 109/80 (90) Room Air 09/07/18 09:45 81 16 103/70 (81) Room Air 09/07/18 09:38 80 16 96/54 (68) Room Air 09/07/18 09:35 78 16 86/51 (63) Room Air 09/07/18 09:20 94 16 107/68 (81) Room Air 09/07/18 09:05 88 16 102/61 (75) Room Air 09/07/18 08:45 88 16 100/58 (72) Room Air 09/07/18 08:30 87 16 109/63 (78) Room Air 09/07/18 07:50 97.1 91 18 103/56 (72) Room Air Labs Laboratory Tests 09/07/18 07:10: Urine Color YELLOW, Urine Clarity CLEAR, Urine pH 6.5, Urine Specific [place] 1.015L, Urine Protein NEGATIVE, Urine Glucose (UA) NEGATIVE, Urine Ketones NEGATIVE, Urine Nitrite NEGATIVE, Urine Bilirubin NEGATIVE, Urine Urobilinogen NORMAL, Urine Leukocyte Esterase NEGATIVE, Urine RBC (Auto) NEGATIVE, Urine RBC NONE, Urine WBC NONE, Urine Squamous Epithelial Cells 0-2, Urine Crystals NONE, Urine Bacteria TRACE, Urine Casts NONE, Urine Mucus NEGATIVE, Urine Culture Indicated NO, Urine Opiates Screen NEGATIVE, Urine Oxycodone Screen NEGATIVE, Urine Methadone Screen NEGATIVE, Urine Propoxyphene Screen NEGATIVE, Urine Barbiturates Screen NEGATIVE, Ur Tricyclic Antidepressants Screen NEGATIVE, Urine Phencyclidine Screen NEGATIVE, Urine Amphetamines Screen NEGATIVE, Urine Methamphetamines Screen NEGATIVE, Urine Benzodiazepines Screen NEGATIVE, Urine Cocaine Screen NEGATIVE, Urine Cannabinoids Screen NEGATIVE 09/07/18 08:05: White Blood Count 20.6H, Red Blood Count 4.15L, Hemoglobin 12.4, Hematocrit 36, Mean Corpuscular Volume 87, Mean Corpuscular Hemoglobin 30, Mean Corpuscular Hemoglobin Concent 34, Red Cell Distribution Width 13.3, Platelet Count 354, Mean Platelet Volume 9.9, Neutrophils (%) (Auto) 75, Lymphocytes (%) (Auto) 16, Monocytes (%) (Auto) 7, Eosinophils (%) (Auto) 2, Basophils (%) (Auto) 0, Neutrophils # (Auto) 15.6H, Lymphocytes # (Auto) 3.4, Monocytes # (Auto) 1.4H, Eosinophils # (Auto) 0.3, Basophils # (Auto) 0.0, Neutrophils % (Manual) 74, Lymphocytes % (Manual) 15, Monocytes % (Manual) 6, Eosinophils % (Manual) 1, Band Neutrophils 4, Blood Morphology Comment NORMAL LINDSEY HERNANDEZ MD September 07, 2018 18:03
[2018-09-07] MEDS ORDERED: MEASLES,MUMPS,RUBELLA 1 EA INJ SQ ONE (18:15)
[2018-09-07] MEDS ORDERED: WITCH HAZEL(TUCKS) 40 EA JAR TOP PRN (18:15)
[2018-09-07] MEDS ORDERED: TETANUS,DIPTH,PERTUSS P/F (BOOSTRIX) 0.5 ML VIAL IM ONE (18:15)
[2018-09-07] MEDS ORDERED: BENZOCAINE/MENTHOL (DERMOPLAST) 56 ML CAN TP PRN (18:15)
[2018-09-07] MEDS ORDERED: METHYLERGONOVINE 0.2 MG/ML (METHERGINE) AMP IM ONE (19:30)
--- NOTE | 2018-09-07 19:45 | NUR ---
Pt. needs to void. Pt helped to the bathroom and voids. Tolerates well. Pericare provided. Pad and underwear put on. Clean gown put on at this time. Cart loaded with pt belongings and pt. walks with this nurse to her new room. Pt. settled into room. Pt. has no questions or concerns at this time.
[2018-09-07] MEDS: DOCUSATE SODIUM 100 MG (COLACE) CAP PO SCH (21:02)
[2018-09-07] MEDS: IBUPROFEN 600 MG (MOTRIN) TAB PO SCH (21:03)
--- NOTE | 2018-09-07 21:20 | NUR ---
Pt. requests to go downstairs to smoke. Nurse informed pt that she cannot go downstairs until her IV is removed per policy. Pt warned of possibility of having to replace IV should a problem arise. Fundal massage done at this time to reassess bleeding. Fundus is two under umbilicus and firm. Very minimal bleeding noted at this time. IV taken at with consent and agreement of patient.
[2018-09-08] MEDS: IBUPROFEN 600 MG (MOTRIN) TAB PO SCH ×4 (02:39→21:19)
[2018-09-08 04:00] VITALS: BP 94/59
[2018-09-08 06:17] LABS: BASOPHILS % (AUTO) 0 % (0-10); EOSINOPHILS # (AUTO) 0.3 10^3/uL (0.0-0.3); EOSINOPHILS % (AUTO) 1 % (0-10); HEMATOCRIT 33 % (35-52); HEMOGLOBIN 10.8 G/DL (11.5-16.0); LYMPHOCYTES # (AUTO) 4.5 X 10^3 (1.0-4.0); LYMPHOCYTES % (AUTO) 19 % (12-44); MEAN CORPUSCULAR HEMOGLOBIN 29 PG (25-34); MEAN CORPUSCULAR HGB CONC 33 G/DL (32-36); MEAN CORPUSCULAR VOLUME 89 FL (80-99); MEAN PLATELET VOLUME 9.8 FL (7.4-10.4); MONOCYTES # (AUTO) 1.2 X 10^3 (0.0-1.0); MONOCYTES % (AUTO) 5 % (0-12); NEUTROPHILS # (AUTO) 17.3 X 10^3 (1.8-7.8); NEUTROPHILS % (AUTO) 74 % (42-75); PLATELET COUNT 290 10^3/uL (130-400); RED CELL DISTRIBUTION WIDTH 13.2 % (10.0-14.5); WHITE BLOOD COUNT 23.3 10^3/uL (4.3-11.0)
--- NOTE | 2018-09-08 07:05 | Anesthesia-Regional Post-Op ---
Regional Patient Condition Mental Status: Alert, Oriented x3 Circulation: Same as Pre-Op Headache: Absent Sensation: Full Recovery Motor Block: Absent Post Op Complications Complications None Follow Up Care/Instructions Patient Instructions None needed. Anesthesia/Patient Condition Patient is doing well, no complaints, stable vital signs, no apparent adverse anesthesia problems. No complications reported per nursing. D/C home per [facility] Criteria: OSCAR Turcios CRNA September 08, 2018 07:05
--- NOTE | 2018-09-08 08:33 | NUR ---
pt ambulating off unit with mother @ side. c/o's cramping.
[2018-09-08 09:14] VITALS: BP 118/74
[2018-09-08] MEDS: DOCUSATE SODIUM 100 MG (COLACE) CAP PO SCH ×2 (09:14→21:19)
--- NOTE | 2018-09-08 09:14 | NUR ---
initial shift assessment completed, see interventions for further.
--- NOTE | 2018-09-08 13:38 | NUR ---
pt ambulating downstairs with family members.
[2018-09-08 14:04] VITALS: BP 109/54
[2018-09-08] MEDS: ACETAMINOPHEN 500 MG TAB (TYLENOL) PO PRN (14:04)
--- NOTE | 2018-09-08 18:46 | NUR ---
was called r/t pt requesting pain medication. "I wouldn't ask but I'm in pain."
[2018-09-08 21:19] VITALS: BP 102/65
--- NOTE | 2018-09-08 23:03 | Postpartum Progress Note ---
Note Note Day # 1 Subjective: Patient is without complaints. Ambulating, voiding. Tolerating a regular diet without nausea or vomiting. Normal lochia. Pain is well controlled with oral pain medications. Bottle feeding. Objective: Physical Exam: General - Alert and oriented, no apparent distress, obese adult female Abdomen - Soft, appropriately tender to palpation, non-distended, fundus firm at umbilicus Extremities - no edema, negative Samir's bilaterally Assessment: 38 yo post- day # 1, status post vacuum assisted vaginal delivery. Recovering well, hemodynamically stable Plan: Routine care. Encourage breast feeding but patient desires to bottle feed Encourage ambulation. Plan for discharge tomorrow Vitals - Labs Vital Signs - I&O Vital Signs Date Time Temp Pulse Resp B/P (MAP) Pulse Ox O2 Delivery O2 Flow Rate FiO2 09/08/18 21:19 97.2 89 18 102/65 (77) 97 Room Air 09/08/18 14:04 97.3 94 18 109/54 (72) 97 Room Air 09/08/18 09:14 96.8 92 18 118/74 (89) 97 Room Air 09/08/18 04:00 97.9 77 18 94/59 (71) 96 Room Air 09/07/18 23:40 97.2 88 16 113/73 (86) 96 Room Air I & O 09/08/18 07:00 Intake Total 3500 ml Output Total 750 ml Balance 2750 ml Labs Laboratory Tests 09/08/18 06:05: White Blood Count 23.3H, Red Blood Count 3.68L, Hemoglobin 10.8L, Hematocrit 33L , Mean Corpuscular Volume 89, Mean Corpuscular Hemoglobin 29, Mean Corpuscular Hemoglobin Concent 33, Red Cell Distribution Width 13.2, Platelet Count 290, Mean Platelet Volume 9.8, Neutrophils (%) (Auto) 74, Lymphocytes (%) (Auto) 19, Monocytes (%) (Auto) 5, Eosinophils (%) (Auto) 1, Basophils (%) (Auto) 0, Neutrophils # (Auto) 17.3H, Lymphocytes # (Auto) 4.5H, Monocytes # (Auto) 1.2H, Eosinophils # (Auto) 0.3, Basophils # (Auto) 0.0 TEA SCHWARTZ MD September 08, 2018 23:03
[2018-09-09 04:30] VITALS: BP 118/68
[2018-09-09] MEDS: IBUPROFEN 600 MG (MOTRIN) TAB PO SCH ×2 (04:30→10:17)
[2018-09-09] MEDS: ACETAMINOPHEN 500 MG TAB (TYLENOL) PO PRN (04:30)
--- NOTE | 2018-09-09 09:30 | NUR ---
DR. SCHWARTZ HERE TO SEE PT. D/C ORDERS REC'D.
--- NOTE | 2018-09-09 09:38 | Discharge Summary ---
Diagnosis/Chief Complaint Date of Admission September 07, 2018 at 07:05 Date of Discharge 09/09/18 Admission Diagnosis Admission Diagnosis IOL 39 week gestation Third trimester Discharge Diagnosis Vacuum assisted Vaginal delivery 39 week gestation Discharge Summary-Simple/Stand Procedures Vacuum Assisted Vaginal delivery Discharge Physical Examination Allergies: Coded Allergies: Aspirin (Verified Allergy, Unknown, 07/17/05) Vitals & I&Os Vital Sign - Last 12Hours Date Time Temp Pulse Resp B/P (MAP) Pulse Ox O2 Delivery O2 Flow Rate FiO2 09/09/18 04:30 96.7 74 18 118/68 (85) 96 Room Air General Appearance: Alert, Oriented X3, Cooperative, No Acute Distress Respiratory: Clear to Auscultation, Normal Air Movement Cardiovascular: Regular Rate, No Murmurs Abdominal: Normal Bowel Sounds, Soft, No Tenderness, No Masses, Other (Fundus firm and below umbilicus) Extremities: No Edema, No Tenderness/Swelling Skin: No Rashes, No Breakdown Neuro: Strength at 5/5 X4 Ext, Cranial Nerves 3-12 NL Psych/Mental Status: Mental Status NL, Mood NL Hospital Course Was the Problem List Reviewed?: Yes See final discharge diagnosis. Discussion & Recommendations 38 yo G7 now P5 delivery term male via vacuum assisted vaginal delivery Discharge Condition at discharge stable Instructions to patient/family Please see electronic discharge instructions given to patient. Discharge Medications Reviewed and agree with Discharge Medication list on patient's Discharge Instruction sheet Clinical Quality Measures DVT/VTE Risk/Contraindication: Risk Factor Score Per Nursin RFS Level Per Nursing on Admit: 2=Moderate Copy Copies To 1: LINDSEY HERNANDEZ MD, HOLLY R MD September 09, 2018 09:38
[2018-09-09] MEDS ORDERED: IBUP-844 PO (09:41)
--- NOTE | 2018-09-09 09:44 | Discharge Instructions ---
Discharge Inst-Women's Serv Depart Medications New, Converted or Re-Newed RX: Other New Medications: Ibuprofen (Ibu) 600 Mg Tablet 600 MG PO Q6H, #90 TAB Continued Medications: Ondansetron (Zofran Odt) 4 Mg Tab.rapdis 4 MG SL Q8H PRN for NAUSEA/VOMITING-1ST LINE, TAB Vit/Iron Fumarate/FA ( Tablet) 1 Each Tablet 1 EACH PO DAILY, TAB Discontinued Medications: Acetaminophen with Codeine (Tylenol with Codeine #3 Tablet) 1 Each Tablet 1 EACH PO Q6H PRN for ABDOMINAL PAIN, TAB Follow Up/Instructions Goal/Follow Up: 6 week f/u Dr Hernandez Activity Activity: Bedrest Driving Instructions: You May Drive NO SMOKING: NO SMOKING Nothing Inside Vagina: No Douching, No [place], No Tampons Diet Discharge Diet: No Restrictions Symptoms to Report to : Swelling Increased, Bleeding Excessive, Pain Increased, Fever Over 101 Degrees F For Any Problems or Questions: Contact Your Physician Copies To 1: LINDSEY HERNANDEZ MD, HOLLY R MD September 09, 2018 09:44
[2018-09-09 10:15] VITALS: BP 125/73
[2018-09-09] MEDS: DOCUSATE SODIUM 100 MG (COLACE) CAP PO SCH (10:17)
--- NOTE | 2018-09-09 11:20 | NUR ---
TO ROOM FOR DISCHARGE INSTRUCTIONS. PT NOT IN ROOM AT THIS TIME, ALL BELONGINGS REMAIN IN ROOM. WILL TRY AGAIN SOON.
--- NOTE | 2018-09-09 12:00 | NUR ---
DISCHARGE INSTRUCTIONS EXPLAINED TO PT WITH COPY PROVIDED TO PT. PT NOTIFIED OF FOLLOW UP APPT. PT VERBALIZES UNDERSTANDING OF INSTRUCTION AND SIGNS TO VERIFY. PT DESIRES TO EAT LUNCH AND WILL PAGE WHEN READY FOR DISMISSAL.
--- NOTE | 2018-09-09 12:15 | NUR ---
PT AMBULATES OFF UNIT ACCOMPANIED BY OB STAFF AND MOTHER TO PRIVATE VEHICLE WITH ALL PERSONAL BELONGINGS. NO S/S OF DISTRESS NOTED.
== END 2018-09-09 12:15 | disposition home or self-care (01) | DRG 807 ==
LOC: LDRP 07:05
PROVIDERS: ADMIT Family Medicine; ATTEND Family Medicine
PROC: 10D07Z6 Extraction of Products of Conception, Vacuum, Via Natural or Artificial Opening (ICD-10-PCS; principal; 2018-09-07)
PROC: 3E033VJ Introduction of Other Hormone into Peripheral Vein, Percutaneous Approach (ICD-10-PCS; 2018-09-07)
DX: O99.213 Obesity complicating pregnancy, third trimester (principal); E66.01 Morbid (severe) obesity due to excess calories; O62.1 Secondary uterine inertia; O69.81X0 Labor and delivery complicated by cord around neck, without compression, not applicable or unspecified; O99.613 Diseases of the digestive system complicating pregnancy, third trimester; K21.9 Gastro-esophageal reflux disease without esophagitis; O99.333 Smoking (tobacco) complicating pregnancy, third trimester; F17.210 Nicotine dependence, cigarettes, uncomplicated; Z3A.39 39 weeks gestation of pregnancy; Z37.0 Single live birth
CPT/HCPCS: 36415; 80306; 81000; 85007; 85025; 85027; 86850; 86900; 86901

== ENCOUNTER 2021-10-02 19:33 | Emergency (ER) | payer MEDICAID ==
[~2021-10-02] VITALS: Ht 162.5 cm; Wt 97.4 kg
[~2021-10-02 19:33] MED LIST changes: +IBUP-844 PO
[2021-10-02] MEDS ORDERED: CLINDAMYCIN 150 MG (CLEOCIN) CAP PO STA (20:09)
[2021-10-02] MEDS ORDERED: PRD50T PO (20:14)
[2021-10-02] MEDS ORDERED: CLIN-144 PO (20:14)
[2021-10-02] MEDS ORDERED: diphenhydrAMINE 25 MG TAB (BENADRYL) PO ONE (20:15)
[2021-10-02] MEDS ORDERED: methylPREDNISolone 125 MG (Solu-MEDROL) VIAL IM ONE (20:15)
--- NOTE | 2021-10-02 20:15 | ED Integumentary General ---
General Chief Complaint: Skin/Wound Problems Stated Complaint: RASH ON LEGS AND ARMS Nursing Triage Note: PT AMBULATORY INTO ER WITH COMPLAINT OF BILATERAL LEG AND ARM RASH X4-5 DAYS. PT STATES THAT SHE IS STAYING AT SOME APARTMENTS AND THERE IS POISON BROWN AND SUMAC. ARMS AND LEGS ARE REDDENED. Source: patient Exam Limitations: no limitations (FERCHO LAWTON) History of Present Illness Date Seen by Provider: Oct 02, 2021 Time Seen by Provider: 20:10 Initial Comments Patient is a 41-year-old female who presents ED with bilateral lower leg rash and rash to the upper extremities. Started 4 to 5 days ago after patient was mowing the grass near the bypass. She is concerned she got around poison sumac or poison brown which she is highly allergic to. She reports itching. started in her forearms and her lower extremities and has spread. She was wearing short sleeves but was wearing jeans and boots. She reports itching with fluid-filled lesions. These lesions has ruptured. Surrounding redness and swelling to the lower extremities. She noticed some blisters to her forearms that eventually ruptured. Started as red lesions. She has been applying topical hydrocortisone cream and antiitch spray. Denies fever, chills, chest pain, headache, dizziness, body aches, chest pain, shortness of breath (FERCHO LAWTON) Allergies and Home Medications Allergies Coded Allergies: Aspirin (Verified Allergy, Unknown, 07/17/05) Patient Home Medication List Home Medication List Reviewed: Yes (FERCHO LAWTON) Clindamycin HCl (Clindamycin HCl) 300 Mg Capsule, 300 MG PO QID Prescribed by: TINA AYALA on 10/02/212013 Ibuprofen (Ibu) 600 Mg Tablet, 600 MG PO Q6H Prescribed by: TEA SCHWARTZ on 09/09/18 0941 Ondansetron (Zofran Odt) 4 Mg Tab.rapdis, 4 MG SL Q8H PRN for NAUSEA/VOMITING- 1ST LINE, (Reported) Entered as Reported by: SHARLA CHANEY on 08/22/17 1853 Prednisone (Prednisone) 50 Mg Tab, 50 MG PO DAILY Prescribed by: TINA AYALA on 10/02/212013 Vit/Iron Fumarate/FA ( Tablet) 1 Each Tablet, 1 EACH PO DAILY, (Reported) Entered as Reported by: SHARLA Urbano SHIV on 08/22/17 4378 Review of Systems Review of Systems Constitutional: No chills, No diaphoresis, No malaise, No weakness EENTM: No blurred vision, No double vision Respiratory: No cough, No dyspnea on exertion Cardiovascular: No chest pain, No edema Gastrointestinal: No abdominal pain, No nausea, No vomiting Genitourinary: No decreased output, No discharge Skin: change in color, pruritus, rash (FERCHO LAWTON) Past Zemacvt-Clvdkc-Gvacnz Hx Patient Social History Tobacco Use?: Yes Use of E-Cig and/or Vaping dev: Yes E-Cig or Vaping type used: Nicotine Use of E-Cig and/or Vaping Kwesi: Current Everyday User Substance use?: No Alcohol Use?: Yes Alcohol type: Beer, Wine Alcohol Frequency: Couple times a week Pt feels they are or have been: No (FERCHO LAWTON) Immunizations Up To Date Influenza Vaccine Up-to-Date: No; Not Current (FERCHO LAWTON) Seasonal Allergies Seasonal Allergies: Yes (FERCHO LAWTON) Past Medical History Surgeries: Yes Respiratory: No Cardiac: No Neurological: No Sexually Transmitted Disease: No HIV/AIDS: No Genitourinary: No Gastrointestinal: Yes Gastroesophageal Reflux Musculoskeletal: No Endocrine: No HEENT: No Cancer: No Psychosocial: No Integumentary: No Blood Disorders: No Adverse Reaction/Blood Tranf: No (FERCHO LAWTON) Family Medical History Diabetes mellitus 19 FATHER FH: testicular cancer Hypertension 19 FATHER Physical Exam Vital Signs Vital Signs - First Documented 10/02/21 19:44 Temp 36.7 Pulse 83 Resp 16 B/P (MAP) 147/91 (109) Pulse Ox 99 O2 Delivery Room Air (LEELA ESPINOZA MD) Vital Signs Capillary Refill : Less Than 3 Seconds (FERCHO LAWTON) General Appearance: WD/WN, no apparent distress HEENT: PERRL/EOMI, normal ENT inspection, TMs normal, pharynx normal Neck: non-tender, full range of motion, supple Cardiovascular: regular rate, rhythm, no edema, no gallop Respiratory: chest non-tender, lungs clear, normal breath sounds, no respiratory distress Gastrointestinal: normal bowel sounds, non tender, soft Back: normal inspection, no CVA tenderness Extremities: other (Bilateral lower leg swelling and redness. Fluid-filled blisters. Few lesions with crusting and purulent drainage) Neurologic/Psychiatric: database reporting consultant II-XII nml as tested, no motor/sensory deficits, alert, normal mood/affect, oriented x 3 Skin: other (Erythema and swelling to the lower extremities with fluid-filled sacs with mild crusting and purulent drainage. Few blisters noted to the upper extremities. Edema bilateral lower extremities with surrounding erythema) (FERCHO LAWTON) Progress/Results/Core Measures Results/Orders Medications Given in ED Current Medications Medications Dose Ordered Sig/Nicholas Route Start Time Stop Time Status Last Admin Dose Admin Diphenhydramine HCl 25 mg ONCE ONCE PO 10/02/21 20:15 10/02/21 20:16 DC 10/02/21 20:18 25 MG Methylprednisolone Sodium Succinate 125 mg ONCE ONCE IM 10/02/21 20:15 10/02/21 20:16 DC 10/02/21 20:18 125 MG (LEELA ESPINOZA MD) Vital Signs/I&O 10/02/21 10/02/21 19:44 20:20 Temp 36.7 36.7 Pulse 83 83 Resp 16 16 B/P (MAP) 147/91 (109) 147/91 Pulse Ox 99 99 O2 Delivery Room Air Room Air (LEELA ESPINOZA MD) Blood Pressure Mean: 109 Departure Communication (PCP) Concern for poison sumac versus poison brown with secondary cellulitis. She does have some swelling and redness to the lower extremities. She reports itching. Patient was given a dose of Solu-Medrol, Benadryl and clindamycin here. Few lesions concerning for infectious etiology which may be secondary to the contact dermatitis. Will discharge with short burst steroids but discharged with clindamycin as well. Continue monitoring symptoms if any worsening rash, fever, chills to return back to ED. (FERCHO LAWTON) Impression Primary Impression: Rash Disposition: 01 HOME, SELF-CARE Condition: Stable Departure-Patient Inst. Decision time for Depature: 20:12 (FERCHO LAWTON) Referrals: NO,LOCAL PHYSICIAN (PCP/Family) Primary Care Physician Patient Instructions: Skin Rash (DC) Scripts Clindamycin HCl (Clindamycin HCl) 300 Mg Capsule 300 MG PO QID for 7 Days, #28 CAP Prov: FERCHO LAWTON 10/02/21 Prednisone (Prednisone) 50 Mg Tab 50 MG PO DAILY, #5 TAB Prov: FERCHO LAWTON 10/02/21 ATTENDING PHYSICIAN NOTE: I was physically present as attending physician in the emergency department during the care of this patient, but I was not directly involved in the decision making or delivery of care for this patient. (LEELA ESPINOZA MD) FERCHO LAWTON Oct 02, 2021 20:15 LEELA ESPINOZA MD Oct 03, 2021 04:08
[2021-10-02 20:20] VITALS: BP 147/91
== END 2021-10-02 20:20 | disposition home or self-care (01) ==
LOC: EDUNIT# 19:33 → ER 19:35
DX: R21 Rash and other nonspecific skin eruption (principal); M79.89 Other specified soft tissue disorders; F17.290 Nicotine dependence, other tobacco product, uncomplicated
CPT/HCPCS: 99284

== ENCOUNTER 2021-10-21 13:57 | Emergency (ER) | payer MEDICAID ==
[~2021-10-21] VITALS: Ht 160 cm; Wt 97.0 kg
[~2021-10-21 13:57] MED LIST changes: +CLIN-144 PO; +PRD50T PO
--- NOTE | 2021-10-21 14:37 | ED Back Pain ---
General Chief Complaint: Back Problems Stated Complaint: BACK PAIN Nursing Triage Note: PT CO OF LOW BACK PAIN FOR APPROX 3 WEEKS STATES HAS GOTTEN WORSE PAST 3 DAYS. 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 RATES PAIN 12/03 Source of Information: Patient Exam Limitations: No Limitations (FERCHO LAWTON) History of Present Illness Date Seen by Provider: Oct 21, 2021 Time Seen by Provider: 14:34 Initial Comments Patient is a 41-year-old female who presents the ED with low back pain. Pain started about 3 weeks ago. Described as dull and achy with intermittent sharp pain. Pain is exacerbated with standing. She reports radiating pain to her right lower lateral abdomen. No worsening pain with movement. Bending over as well makes the pain worse. No bowel or urine incontinence, saddle paresthesia, lower extremity weakness or sensory changes. No specific injury that she can recall. Has been taking muscle relaxers and a few days worth of pain medication without much improvement. She denies fever, chills, chest pain, Miguel Angel pain vomiting, diarrhea, weight loss, drug use, night sweats, headache, neck pain. (FERCHO LAWTON) Allergies and Home Medications Allergies Coded Allergies: Aspirin (Verified Allergy, Unknown, 07/17/05) Patient Home Medication List Home Medication List Reviewed: Yes (FERCHO LAWTON) Clindamycin HCl (Clindamycin HCl) 300 Mg Capsule, 300 MG PO QID Prescribed by: TINA AYALA on 10/02/212013 Cyclobenzaprine HCl (Cyclobenzaprine HCl) 10 Mg Tablet, 10 MG PO TID Prescribed by: TINA AYALA on 10/21/21 163 Hydrocodone/Acetaminophen (Hydrocodone-Acetamin 5-325 mg) 5 Mg-325 Mg Tablet, 1 TAB PO Q4H PRN for PAIN-MODERATE (5-7) Prescribed by: TINA AYALA on 10/21/21 1632 Ibuprofen (Ibu) 600 Mg Tablet, 600 MG PO Q6H Prescribed by: TEA SCHWARTZ on 09/09/18 0941 Naproxen (Naproxen) 500 Mg Tablet, 500 MG PO BID Prescribed by: TINA AYALA on 10/21/21 1632 Ondansetron (Zofran Odt) 4 Mg Tab.rapdis, 4 MG SL Q8H PRN for NAUSEA/VOMITING- 1ST LINE, (Reported) Entered as Reported by: SHARLA CHANEY on 08/22/171852 Prednisone (Prednisone) 50 Mg Tab, 50 MG PO DAILY Prescribed by: TINA AYALA on 10/02/212013 Vit/Iron Fumarate/FA ( Tablet) 1 Each Tablet, 1 EACH PO DAILY, (Reported) Entered as Reported by: SHARLA CHANEY on 08/22/171852 Review of Systems Constitutional: No chills, No diaphoresis EENTM: No ear pain, No blurred vision Respiratory: No cough, No dyspnea on exertion Cardiovascular: No chest pain, No edema Gastrointestinal: No abdominal pain, No diarrhea, No nausea, No vomiting Genitourinary: No decreased output, No discharge Musculoskeletal: back pain, joint pain, muscle pain Skin: No change in color, No change in hair/nails (FERCHO LAWTON) All Other Systems Reviewed Negative Unless Noted: Yes (FERCHO LAWTON) Past Xoqerqg-Mmujdg-Zearag Hx Seasonal Allergies Seasonal Allergies: Yes (FERCHO LAWTON) Past Medical History Surgeries: Yes Respiratory: No Cardiac: No Neurological: No Sexually Transmitted Disease: No HIV/AIDS: No Genitourinary: No Gastrointestinal: Yes Gastroesophageal Reflux Musculoskeletal: No Endocrine: No HEENT: No Cancer: No Psychosocial: No Integumentary: No Blood Disorders: No Adverse Reaction/Blood Tranf: No (FERCHO LAWTON) Family Medical History Diabetes mellitus 19 FATHER FH: testicular cancer Hypertension 19 FATHER Physical Exam Vital Signs Vital Signs - First Documented 10/21/21 14:05 Temp 37.5 Pulse 93 Resp 18 B/P (MAP) 125/85 (98) Pulse Ox 97 (LEELA ESPINOZA MD) Vital Signs Capillary Refill : Less Than 3 Seconds (FERCHO LAWTON) Height, Weight, BMI Height: 5'4.00" Weight: 251lbs. 2.0oz. [id number]; 37.00 BMI Method: General Appearance: No Apparent Distress, WD/WN HEENT: PERRL/EOMI, TMs Normal, Normal ENT Inspection, Pharynx Normal Neck: Full Range of Motion, Normal Inspection, Non Tender, Supple Cardiovascular: Regular Rate, Rhythm, No Edema, No Gallop, No JVD Respiratory: Chest Non Tender, Lungs Clear, Normal Breath Sounds, No Accessory Muscle Use, No Respiratory Distress Gastrointestinal: Normal Bowel Sounds, No Organomegaly, No Pulsatile Mass, Non Tender Back: Normal Inspection, No CVA Tenderness, Other (Lumbar midline tenderness) Extremity: Normal Capillary Refill, Normal Inspection Neurologic/Psychiatric: Alert, Oriented x3, No Motor/Sensory Deficits, Normal 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, 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 Norm as Tested Skin: Normal Color, Warm/Dry (FERCHO LAWTON) Progress/Results/Core Measures Results/Orders Lab Results Laboratory Tests Test 10/21/21 16:00 Range/Units Urine Color YELLOW Urine Clarity CLEAR Urine pH 6.0 5-9 Urine Specific [place] 1.020 1.016-1.022 Urine Protein NEGATIVE NEGATIVE Urine Glucose (UA) NEGATIVE NEGATIVE Urine Ketones NEGATIVE NEGATIVE Urine Nitrite NEGATIVE NEGATIVE Urine Bilirubin NEGATIVE NEGATIVE Urine Urobilinogen 0.2 < = 1.0 MG/DL Urine Leukocyte Esterase NEGATIVE NEGATIVE Urine RBC (Auto) 1+ H NEGATIVE Urine RBC 2-5 H /HPF Urine WBC 0-2 /HPF Urine Squamous Epithelial Cells 2-5 /HPF Urine Crystals NONE /LPF Urine Bacteria FEW H /HPF Urine Casts NONE /LPF Urine Mucus SMALL H /LPF Urine Culture Indicated YES Urine Test NEGATIVE NEGATIVE (LEELA ESPINOZA MD) Medications Given in ED Current Medications Medications Dose Ordered Sig/Nicholas Route Start Time Stop Time Status Last Admin Dose Admin Ketorolac Tromethamine 30 mg ONCE ONCE IM 10/21/21 14:45 10/21/21 14:46 DC 10/21/21 15:19 30 MG Orphenadrine Citrate 60 mg ONCE ONCE IM 10/21/21 14:45 10/21/21 14:46 DC 10/21/21 15:19 60 MG (LEELA ESPINOZA MD) Vital Signs/I&O 10/21/21 10/21/21 14:05 16:55 Temp 37.5 37.5 Pulse 93 93 Resp 18 18 B/P (MAP) 125/85 (98) 125/85 Pulse Ox 97 97 (LEELA ESPINOZA MD) Blood Pressure Mean: 98 Departure Communication (PCP) Urinalysis positive for hematuria. No evidence of infection. No evidence of . Patient reports lower back pain for the past 3 weeks. Pain occurs with standing or bending and worse with movement. Pain bilateral. No one-sided pain suggesting kidney stone. She is afebrile. Does not appear acute distress. CT scan negative for acute abnormality but did show some degenerative changes. She has no lumbar radiculopathy. No neurological red flag findings. Cannot recall any specific injury. No weight loss, night sweats, fever. Recommend conservative treatment for musculoskeletal. Outpatient follow-up with primary care physician for further evaluation. May benefit with physical therapy or further imaging as needed. Due to the location of pain unlikely secondary to her kidneys. If having continued flank pain and developing abdominal pain recommend lab work for further evaluation. Return precaution were discussed. Follow-up with hematuria. No current urinary symptoms. No abdominal tenderness on palpation. (FERCHO LAWTON) Impression Primary Impression: Back pain Additional Impression: Hematuria Disposition: 01 HOME, SELF-CARE Condition: Stable Departure-Patient Inst. Decision time for Depature: 16:31 (FERCHO LAWTON) Referrals: NO,LOCAL PHYSICIAN (PCP/Family) Primary Care Physician Patient Instructions: Low Back Pain (DC) Scripts Naproxen (Naproxen) 500 Mg Tablet 500 MG PO BID, #14 TAB Prov: FERCHO LAWTON 10/21/21 Cyclobenzaprine HCl (Cyclobenzaprine HCl) 10 Mg Tablet 10 MG PO TID for Muscle Spasms, #14 TAB Prov: FERCHO LAWTON 10/21/21 Hydrocodone/Acetaminophen (Hydrocodone-Acetamin 5-325 mg) 5 Mg-325 Mg Tablet 1 TAB PO Q4H PRN for PAIN-MODERATE (5-7), #6 TAB Prov: FERCHO LAWTON 10/21/21 ATTENDING PHYSICIAN NOTE: I was physically present as attending physician in the emergency department during the care of this patient, but I was not directly involved in the decision making or delivery of care for this patient. (LEELA ESPINOZA MD) FERCHO LAWTON Oct 21, 2021 14:37 LEELA ESPINOZA MD Oct 21, 2021 19:18
[2021-10-21] MEDS ORDERED: ORPHENADRINE 60 MG/2 ML (NORFLEX) AMP (ED ONLY) IM ONE (14:45)
[2021-10-21] MEDS ORDERED: KETOROLAC 30 MG/ML VIAL IM ONE (14:45)
--- NOTE | 2021-10-21 15:42 | Diagnostic Imaging Report ---
PROCEDURE: CT lumbar spine without contrast. TECHNIQUE: Multiple contiguous axial images were obtained through the lumbar spine without the use of intravenous contrast. Sagittal and coronal reformations were then performed. Auto Exposure Controls were utilized during the CT exam to meet ALARA standards for radiation dose reduction. INDICATION: Lower back pain x2 weeks. COMPARISON: None. FINDINGS: Static alignment of the lumbar spine is maintained. There is no significant evy or retrolisthesis. There is no evidence of jumped facets. Vertebral body heights are maintained. There is no acute fracture. No bony fragments are seen within the spinal canal. There are mild multilevel degenerative changes. This consists primarily of multilevel ligamentum flavum laxity and facet arthropathy. There is however no significant spinal canal or neuroforaminal stenosis. Pre and paravertebral soft tissue structures are unremarkable. IMPRESSION: 1. No acute fracture or dislocation of the lumbar spine. Dictated by: Dictated on workstation # [id number]
[2021-10-21 16:14] LABS: BILIRUBIN,URINE NEGATIVE (NEGATIVE); CLARITY,URINE CLEAR; COLOR,URINE YELLOW; GLUCOSE, URINE (UA) NEGATIVE (NEGATIVE); KETONES,URINE NEGATIVE (NEGATIVE); LEUKOCYTE ESTERASE ,URINE NEGATIVE (NEGATIVE); NITRITE,URINE NEGATIVE (NEGATIVE); PROTEIN,URINE NEGATIVE (NEGATIVE)
[2021-10-21 16:21] LABS: BACTERIA,URINE FEW /HPF; WBC,URINE 0-2 /HPF
[2021-10-21] MEDS ORDERED: ACHD5005 PO (16:32)
[2021-10-21] MEDS ORDERED: CYCL10TA25 PO (16:32)
[2021-10-21] MEDS ORDERED: NAPR-915 PO (16:32)
[2021-10-21 16:55] VITALS: BP 125/85
== END 2021-10-21 16:55 | disposition home or self-care (01) ==
LOC: EDUNIT# 13:57 → ER 13:59
DX: M54.50 Low back pain, unspecified (principal); R31.9 Hematuria, unspecified; M47.816 Spondylosis without myelopathy or radiculopathy, lumbar region
CPT/HCPCS: 72131; 81000; 84703; 87077; 87088; 87186

== ENCOUNTER 2021-11-28 14:13 | Emergency (ER) | payer MEDICAID ==
[~2021-11-28] VITALS: Ht 160 cm; Wt 90.7 kg
[~2021-11-28 14:13] MED LIST changes: +ACHD5005 PO; +CYCL10TA25 PO; +NAPR-1071 PO; +NAPR-915 PO; +NITR-65 PO
[2021-11-28] MEDS ORDERED: HYDROcodone/APAP 5 MG/325 MG (LORTAB) TAB PO ONE (14:30)
--- NOTE | 2021-11-28 14:31 | ED Lower Extremity ---
General Chief Complaint: Lower Extremity Stated Complaint: L LEG PAIN/NUMBNESS,FELL Nursing Triage Note: PT PRESENTS TO ED VIA POV FROM HOME WITH COMPLAINTS OF L KNEEE PAIN AFTER FALLING TWO DAYS AGO AND FEELING HER L KNEE BUCKLE. Source: patient Exam Limitations: no limitations History of Present Illness Date Seen by Provider: Nov 28, 2021 Time Seen by Provider: 14:30 Initial Comments Patient is a 41-year-old female who presents the ED for left knee pain. She states 2 days ago she was standing on a chair lost her balance and landed on her left knee while standing felt a pop. She is concerned she hyperextended her knee. Since then she has had some swelling pain with numbness and tingling down the left side of her calf. Denies of any bruising or redness. Denies popping of the knee or the knee wanting to give out. She states it feels stiff. No history of previous injury. Has been taken Tylenol without much improvement. Denies fever, chills, nausea vomiting, diarrhea. Allergies and Home Medications Allergies Coded Allergies: Aspirin (Verified Allergy, Unknown, 07/17/05) Patient Home Medication List Home Medication List Reviewed: Yes Clindamycin HCl (Clindamycin HCl) 300 Mg Capsule, 300 MG PO QID Prescribed by: TINA AYALA on 10/02/212013 Cyclobenzaprine HCl (Cyclobenzaprine HCl) 10 Mg Tablet, 10 MG PO TID Prescribed by: TINA AYALA on 10/21/21 163 Cyclobenzaprine HCl (Cyclobenzaprine HCl) 10 Mg Tablet, 10 MG PO Q8H PRN for SPASMS Prescribed by: CARYN QUARLES on 11/03/21 192 Hydrocodone/Acetaminophen (Hydrocodone-Acetamin 5-325 mg) 5 Mg-325 Mg Tablet, 1 TAB PO Q4H PRN for PAIN-MODERATE (5-7) Prescribed by: TINA AYALA on 10/21/21 1632 Hydrocodone/Acetaminophen (Hydrocodone-Acetamin 5-325 mg) 5 Mg-325 Mg Tablet, 1 TAB PO Q4H PRN for PAIN-MODERATE (5-7) Prescribed by: TINA AYALA on 11/28/21 1511 Ibuprofen (Ibu) 600 Mg Tablet, 600 MG PO Q6H Prescribed by: TEA SCHWARTZ on 09/09/18 0941 Naproxen (Naproxen) 500 Mg Tablet, 500 MG PO BID Prescribed by: TINA AYALA on 10/21/21 1632 Naproxen (Naprosyn) 500 Mg Tablet, 500 MG PO BID Prescribed by: CARYN QUARLES on 11/03/211922 Nitrofurantoin Monohyd/M-Cryst (Macrobid 100 mg Capsule) 100 Mg Capsule, 1 TAB PO BID Prescribed by: CARYN QUARLES on 11/03/211922 Ondansetron (Zofran Odt) 4 Mg Tab.rapdis, 4 MG SL Q8H PRN for NAUSEA/VOMITING- 1ST LINE, (Reported) Entered as Reported by: SHARLA CHANEY on 08/22/171852 Prednisone (Prednisone) 50 Mg Tab, 50 MG PO DAILY Prescribed by: TINA AYALA on 10/02/212013 Vit/Iron Fumarate/FA ( Tablet) 1 Each Tablet, 1 EACH PO DAILY, (Reported) Entered as Reported by: SHARLA CHANEY on 08/22/171852 Review of Systems Constitutional: No chills, No diaphoresis, No malaise, No weakness EENTM: No ear pain, No blurred vision, No double vision, No hoarseness, No mouth pain Respiratory: No dyspnea on exertion Cardiovascular: No chest pain, No edema Gastrointestinal: No abdominal pain, No diarrhea, No nausea, No vomiting Genitourinary: No decreased output, No discharge Musculoskeletal: No back pain; joint pain, muscle pain Skin: No change in color, No change in hair/nails All Other Systems Reviewed Negative Unless Noted: Yes Past Lgjmgxv-Skrgya-Toejlw Hx Patient Social History Tobacco Use?: No Use of E-Cig and/or Vaping dev: Yes E-Cig or Vaping type used: Nicotine Use of E-Cig and/or Vaping Kwesi: Current Everyday User Substance use?: No Alcohol Use?: Yes Alcohol Frequency: Rarely Pt feels they are or have been: No Immunizations Up To Date First/Initial COVID19 Vaccinat: YES Second COVID19 Vaccination Earnest: YES 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 Seasonal Allergies Seasonal Allergies: Yes Past Medical History Surgery/Hospitalization HX: SX: T/A Surgeries: Yes Respiratory: No Cardiac: No Neurological: No Sexually Transmitted Disease: No HIV/AIDS: No Genitourinary: No Gastrointestinal: Yes Gastroesophageal Reflux Musculoskeletal: No Endocrine: No HEENT: No Cancer: No Psychosocial: No Integumentary: No Blood Disorders: No Adverse Reaction/Blood Tranf: No Family Medical History Diabetes mellitus 19 FATHER FH: testicular cancer Hypertension 19 FATHER Physical Exam Vital Signs Vital Signs - First Documented 11/28/21 14:23 Temp 35.8 Pulse 98 Resp 16 B/P (MAP) 124/88 (100) Pulse Ox 98 Capillary Refill : Less Than 3 Seconds Height, Weight, BMI Height: 5'4.00" Weight: 251lbs. 2.0oz. 113.882986qn; 35.00 BMI Method: General Appearance: WD/WN, no apparent distress HEENT: PERRL/EOMI, normal ENT inspection, TMs normal, pharynx normal Neck: non-tender, full range of motion, supple Cardiovascular: regular rate, rhythm, no edema, no gallop, no JVD Respiratory: chest non-tender, lungs clear, normal breath sounds, no respi ratory distress, no accessory muscle use Gastrointestinal: normal bowel sounds, non tender, soft, no organomegaly Knees: left knee pain, left knee soft tissue tenderness, left knee swelling Ankles: bilateral ankle non-tender Feet: bilateral foot non-tender, bilateral foot normal inspection, bilateral foot normal range of motion Neurologic/Tendon: normal sensation, normal motor functions Progress/Results/Core Measures Results/Orders My Orders Orders - FERCHO LAWTON Knee, Left, 3 Views (11/28/21 14:28) Hydrocodone/Apap 5/325 Tablet (Lortab 5 (11/28/21 14:30) Crutches (11/28/21 15:11) Medications Given in ED Current Medications Medications Dose Ordered Sig/Nicholas Route Start Time Stop Time Status Last Admin Dose Admin Acetaminophen/ Hydrocodone Bitart 1 ea ONCE ONCE PO 11/28/21 14:30 11/28/21 14:31 DC 11/28/21 14:46 1 EA Vital Signs/I&O 11/28/21 11/28/21 14:23 15:20 Temp 35.8 35.8 Pulse 98 98 Resp 16 16 B/P (MAP) 124/88 (100) 124/88 Pulse Ox 98 98 Blood Pressure Mean: 100 Departure Communication (PCP) Left lower extremity neurovascular intact with equal pulses bilateral lower extremity. Able to flex and fully extend the left knee. Tenderness to palpate medial compartment. No significant laxity with valgus or varus stress. No significant laxity or pain with anterior and posterior drawer test. Anil test without significant locking or popping. Questionable joint effusion noted on x-ray. Negative for acute bony abnormality. Concerning for potential ligament or meniscus injury secondary to her mechanism of injury. Patient was provided crutches and was given dose of pain medication. Recommend continue with pain medication, ice and bear weight as tolerated. Recommend orthopedic outpatient follow-up in 7 to 10 days for further evaluation Impression Primary Impression: Knee pain Disposition: 01 HOME, SELF-CARE Condition: Stable Departure-Patient Inst. Decision time for Depature: 15:10 Referrals: NO,LOCAL PHYSICIAN (PCP) Primary Care Physician CHANI HSU MD Patient Instructions: Knee Pain Scripts Hydrocodone/Acetaminophen (Hydrocodone-Acetamin 5-325 mg) 5 Mg-325 Mg Tablet 1 TAB PO Q4H PRN for PAIN-MODERATE (5-7), #8 TAB Prov: FERCHO LAWTON 11/28/21 FERCHO LAWTON Nov 28, 2021 14:31
--- NOTE | 2021-11-28 14:46 | Diagnostic Imaging Report ---
INDICATION: 2 days post fall with left knee pain TECHNIQUE: 3 views of the left knee CORRELATION STUDY: None FINDINGS: Genu valgus alignment is suggested. The medial and lateral compartments are maintained. Patellofemoral compartment is maintained. There is no acute bony abnormality with the articular surfaces smooth. Suprapatella joint effusion present. IMPRESSION: 1. Negative for acute bony abnormality of the knee. Suspect joint effusion. If there is concern for potential internal derangement, MRI would be recommended. Dictated by: Dictated on workstation # [id number]
[2021-11-28] MEDS ORDERED: ACHD5005 PO (15:11)
[2021-11-28 15:20] VITALS: BP 124/88
== END 2021-11-28 15:20 | disposition home or self-care (01) ==
LOC: EDUNIT# 14:13 → ER 14:15
DX: M25.462 Effusion, left knee (principal); F17.290 Nicotine dependence, other tobacco product, uncomplicated; Z88.6 Allergy status to analgesic agent; W07.XXXA Fall from chair, initial encounter; X50.1XXA Overexertion from prolonged static or awkward postures, initial encounter; Y92.009 Unspecified place in unspecified non-institutional (private) residence as the place of occurrence of the external cause
CPT/HCPCS: 73562

== ENCOUNTER 2021-12-05 17:41 | Emergency (ER) | payer MEDICAID ==
[~2021-12-05] VITALS: Ht 162 cm; Wt 95.0 kg
--- NOTE | 2021-12-05 18:03 | ED Fall/Injury ---
General Chief Complaint: Trauma-Non Activation Stated Complaint: FELL Source: patient Exam Limitations: no limitations (FERCHO LAWTON) History of Present Illness Date Seen by Provider: Dec 05, 2021 Time Seen by Provider: 17:58 Initial Comments Patient is a 41-year-old female who presents the ED with abdominal pain, right knee pain, head pain. Patient states 2 days ago she fell through the attic ceiling hitting a 2 x 6 while falling 14 feet hitting the floor in her closet with her head and abdomen, and right knee. She states she hit her abdomen against the 2 x 6 when falling. Possible hit a sewing machine in the closet. This resulted in bruising swelling and pain to lower abdomen near her umbilicus. She hit her head but denies loss of conscious. Denies neck pain. Patient is not on blood thinners. She reports right knee pain worse with walking. She reports a wound to the right anterior knee. Not up-to-date on her tetanus. She has been able to ambulate but reports continuous head pain, abdominal pain and right knee pain. Has been taking anti-inflammatories at home without much improvement. Denies vomiting, visual changes, chest pain, shortness of breath, cough, unilateral muscle weakness or sensory changes, middle lower back pain, neck pain. (FERCHO LAWTON) Allergies and Home Medications Allergies Coded Allergies: Aspirin (Verified Allergy, Unknown, 07/17/05) Patient Home Medication List Home Medication List Reviewed: Yes (FERCHO LAWTON) Clindamycin HCl (Clindamycin HCl) 300 Mg Capsule, 300 MG PO QID Prescribed by: TINA AYALA on 10/02/212013 Cyclobenzaprine HCl (Cyclobenzaprine HCl) 10 Mg Tablet, 10 MG PO TID Prescribed by: TINA AYALA on 10/21/21 163 Cyclobenzaprine HCl (Cyclobenzaprine HCl) 10 Mg Tablet, 10 MG PO Q8H PRN for SPASMS Prescribed by: CARYN QUARLES on 11/03/211922 Hydrocodone/Acetaminophen (Hydrocodone-Acetamin 5-325 mg) 5 Mg-325 Mg Tablet, 1 TAB PO Q4H PRN for PAIN-MODERATE (5-7) Prescribed by: TINA AYALA on 10/21/21 1632 Hydrocodone/Acetaminophen (Hydrocodone-Acetamin 5-325 mg) 5 Mg-325 Mg Tablet, 1 TAB PO Q4H PRN for PAIN-MODERATE (5-7) Prescribed by: TINA AYALA on 11/28/21 1511 Hydrocodone/Acetaminophen (Hydrocodone-Acetamin 5-325 mg) 5 Mg-325 Mg Tablet, 1 TAB PO Q4H PRN for PAIN-MODERATE (5-7) Prescribed by: TINA AYALA on 12/05/21 1933 Ibuprofen (Ibu) 600 Mg Tablet, 600 MG PO Q6H Prescribed by: TEA SCHWARTZ on 09/09/18 0941 Naproxen (Naproxen) 500 Mg Tablet, 500 MG PO BID Prescribed by: TINA AYALA on 10/21/21 1632 Naproxen (Naprosyn) 500 Mg Tablet, 500 MG PO BID Prescribed by: CARYN QUARLES on 11/03/21 192 Nitrofurantoin Monohyd/M-Cryst (Macrobid 100 mg Capsule) 100 Mg Capsule, 1 TAB PO BID Prescribed by: CARYN QUARLES on 11/03/211922 Ondansetron (Zofran Odt) 4 Mg Tab.rapdis, 4 MG SL Q8H PRN for NAUSEA/VOMITING- 1ST LINE, (Reported) Entered as Reported by: SHARLA CHANEY on 08/22/171852 Prednisone (Prednisone) 50 Mg Tab, 50 MG PO DAILY Prescribed by: TINA AYALA on 10/02/212013 Vit/Iron Fumarate/FA ( Tablet) 1 Each Tablet, 1 EACH PO DAILY, (Reported) Entered as Reported by: SHARLA CHANEY on 08/22/171852 Review of Systems Review of Systems Constitutional: No chills, No diaphoresis, No malaise, No weakness Eyes: Denies Decreased Acuity Ears, Nose, Mouth, Throat: denies ear pain, denies ear discharge, denies mouth pain Respiratory: No cough, No dyspnea on exertion Cardiovascular: No chest pain Gastrointestinal: abdominal pain; No diarrhea, No nausea, No vomiting Genitourinary: No decreased output, No discharge Musculoskeletal: back pain, joint pain Skin: change in color; No change in hair/nails; other (brusising to lower abd) (FERCHO LAWTON) Past Nlkbzlg-Kokrod-Zblhjc Hx Immunizations Up To Date First/Initial COVID19 Vaccinat: YES Second COVID19 Vaccination [place]: YES (FERCHO LAWTON) Seasonal Allergies Seasonal Allergies: Yes (FERCHO LAWTON) Past Medical History Surgery/Hospitalization HX: SX: T/A Surgeries: Yes Respiratory: No Cardiac: No Neurological: No Sexually Transmitted Disease: No HIV/AIDS: No Genitourinary: No Gastrointestinal: Yes Gastroesophageal Reflux Musculoskeletal: No Endocrine: No HEENT: No Cancer: No Psychosocial: No Integumentary: No Blood Disorders: No Adverse Reaction/Blood Tranf: No (FERCHO LAWTON) Family Medical History Diabetes mellitus 19 FATHER FH: testicular cancer Hypertension 19 FATHER Physical Exam Vital Signs Vital Signs - First Documented 12/05/21 18:13 Temp 36.0 Pulse 90 Resp 18 Pulse Ox 100 O2 Delivery Room Air (LEELA ESPINOZA MD) Vital Signs Capillary Refill : (FERCHO LAWTON) Height, Weight, BMI Height: 5'4.00" Weight: 251lbs. 2.0oz. 113.100772xp; 35.00 BMI Method: General Appearance: WD/WN, no apparent distress HEENT: PERRL/EOMI, normal ENT inspection, TMs normal, pharynx normal, other (Occipital head tenderness with small contusion. No crepitus or step-off.) Neck: non-tender, full range of motion, supple, normal inspection Cardiovascular: regular rate, rhythm, no edema, no gallop, no JVD Respiratory: chest non-tender, lungs clear, normal breath sounds, no respiratory distress, no accessory muscle use Gastrointestinal: normal bowel sounds, soft, no organomegaly, tenderness (S uprapubic tenderness, lower abdominal tenderness bilateral) Pelvic: normal external exam Back: no vertebral tenderness, other (Right lumbar paraspinal muscle tenderness. No thoracic or lumbar midline tenderness) Extremities: other (Tenderness right anterior knee with scabbed vertical abrasion. Normal patella tracking. 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, no motor/sensory deficits, alert, normal mood/affect (FERCHO LAWTON) Progress/Results/Core Measures Results/Orders Lab Results Laboratory Tests Test 12/05/21 18:10 Range/Units White Blood Count 13.3 H 4.3-11.0 10^3/uL Red Blood Count 4.28 3.80-5.11 10^6/uL Hemoglobin 12.5 11.5-16.0 g/dL Hematocrit 38 35-52 % Mean Corpuscular Volume 89 80-99 fL Mean Corpuscular Hemoglobin 29 25-34 pg Mean Corpuscular Hemoglobin Concent 33 32-36 g/dL Red Cell Distribution Width 12.2 10.0-14.5 % Platelet Count 348 130-400 10^3/uL Mean Platelet Volume 9.1 9.0-12.2 fL Immature Granulocyte % (Auto) 0 % Neutrophils (%) (Auto) 64 42-75 % Lymphocytes (%) (Auto) 26 12-44 % Monocytes (%) (Auto) 6 0-12 % Eosinophils (%) (Auto) 3 0-10 % Basophils (%) (Auto) 0 0-10 % Neutrophils # (Auto) 8.5 H 1.8-7.8 10^3/uL Lymphocytes # (Auto) 3.4 1.0-4.0 10^3/uL Monocytes # (Auto) 0.8 0.0-1.0 10^3/uL Eosinophils # (Auto) 0.4 H 0.0-0.3 10^3/uL Basophils # (Auto) 0.0 0.0-0.1 10^3/uL Immature Granulocyte # (Auto) 0.0 0.0-0.1 10^3/uL Prothrombin Time 13.0 12.2-14.7 SEC INR Comment 0.9 0.8-1.4 Activated Partial Thromboplast Time 29 24-35 SEC Sodium Level 140 135-145 MMOL/L Potassium Level 3.7 3.6-5.0 MMOL/L Chloride Level 107 98-107 MMOL/L Carbon Dioxide Level 24 21-32 MMOL/L Anion Gap 9 5-14 MMOL/L Blood Urea Nitrogen 15 7-18 MG/DL Creatinine 0.78 0.60-1.30 MG/DL Estimat Glomerular Filtration Rate 99 BUN/Creatinine Ratio 19 Glucose Level 95 70-105 MG/DL Calcium Level 9.0 8.5-10.1 MG/DL Corrected Calcium 9.2 8.5-10.1 MG/DL Total Bilirubin 0.3 0.1-1.0 MG/DL Aspartate Amino Transf (AST/SGOT) 29 5-34 U/L Alanine Aminotransferase (ALT/SGPT) 37 0-55 U/L Alkaline Phosphatase 97 40-136 U/L Total Protein 7.0 6.4-8.2 GM/DL Albumin 3.8 3.2-4.5 GM/DL Serum Test, Qualitative NEGATIVE NEGATIVE (LEELA ESPINOZA MD) Vital Signs/I&O 12/05/21 18:13 Temp 36.0 Pulse 90 Resp 18 B/P (MAP) Pulse Ox 100 O2 Delivery Room Air (LEELA ESPINOZA MD) Departure Communication (PCP) X-ray of the right knee negative for fracture. CT scan of the head negative for acute abnormality. CT abdomen pelvis negative for any intra-abdominal injury. Superficial abdominal ecchymosis noted. Recommend ice. Lab work was otherwise unremarkable. No cervical, thoracic or lumbar midline tenderness. Neuro exam unremarkable. Refused anything for pain. Updated tetanus shot here in the ED. Discussed rest, anti-inflammatories at home. We will provide a few days worth of stronger pain medication as needed. Patient is alert and orient x3 GCS 15. Patient with a stable gait. Outpatient follow-up with PCP for further evaluation in the next 3 to 4 days. Appears to be more muscular pain. Stable right knee joint (FERCHO LAWTON) Impression Primary Impression: Superficial bruising of abdominal wall Additional Impressions: Knee pain Head pain Disposition: HOME, SELF-CARE Condition: Stable Departure-Patient Inst. Decision time for Depature: 18:55 (FERCHO LAWTON) Referrals: [facility] [place],LOCAL PHYSICIAN (PCP) Primary Care Physician Patient Instructions: Blunt Abdominal Trauma Scripts Hydrocodone/Acetaminophen (Hydrocodone-Acetamin 5-325 mg) 5 Mg-325 Mg Tablet 1 TAB PO Q4H PRN for PAIN-MODERATE (5-7), #6 TAB Prov: FERCHO LAWTON 12/05/21 Work/School Note: Work Release Form Date Seen in the Emergency Department: Dec 05, 2021 Return to Work: Dec 08, 2021 ATTENDING PHYSICIAN NOTE: I was physically present as attending physician in the emergency department during the care of this patient, but I was not directly involved in the decision making or delivery of care for this patient. (LEELA ESPINOZA MD) FERCHO LAWTON Dec 05, 2021 18:03 LEELA ESPINOZA MD Dec 08, 2021 00:03
[2021-12-05] MEDS ORDERED: IOHEXOL 350 MG/ML 100 ML (OMNIPAQUE 350) VIAL IV ONE ×2 (18:15→19:15)
[2021-12-05] MEDS ORDERED: NS 100 ML (IVPB) BAG IV ONE ×2 (18:15→19:15)
[2021-12-05] MEDS ORDERED: HOLD METFORMIN - RECEIVED CONTRAST 20 ML VIAL IV SCH ×2 (18:15→19:15)
[2021-12-05] MEDS ORDERED: TETANUS,DIPTH,PERTUSS P/F (BOOSTRIX) 0.5 ML VIAL IM ONE (18:15)
[2021-12-05 18:16] LABS: BASOPHILS % (AUTO) 0 % (0-10); EOSINOPHILS # (AUTO) 0.4 10^3/uL (0.0-0.3); EOSINOPHILS % (AUTO) 3 % (0-10); HEMATOCRIT 38 % (35-52); HEMOGLOBIN 12.5 g/dL (11.5-16.0); LYMPHOCYTES # (AUTO) 3.4 10^3/uL (1.0-4.0); LYMPHOCYTES % (AUTO) 26 % (12-44); MEAN CORPUSCULAR HEMOGLOBIN 29 pg (25-34); MEAN CORPUSCULAR HGB CONC 33 g/dL (32-36); MEAN CORPUSCULAR VOLUME 89 fL (80-99); MEAN PLATELET VOLUME 9.1 fL (9.0-12.2); MONOCYTES # (AUTO) 0.8 10^3/uL (0.0-1.0); MONOCYTES % (AUTO) 6 % (0-12); NEUTROPHILS # (AUTO) 8.5 10^3/uL (1.8-7.8); NEUTROPHILS % (AUTO) 64 % (42-75); PLATELET COUNT 348 10^3/uL (130-400); WHITE BLOOD COUNT 13.3 10^3/uL (4.3-11.0)
[2021-12-05 18:38] LABS: INR 0.9 (0.8-1.4)
[2021-12-05 18:45] LABS: ALBUMIN 3.8 GM/DL (3.2-4.5); BILIRUBIN,TOTAL 0.3 MG/DL (0.1-1.0); CREATININE SERUM 0.78 MG/DL (0.60-1.30); POTASSIUM 3.7 MMOL/L (3.6-5.0)
--- NOTE | 2021-12-05 19:09 | Diagnostic Imaging Report ---
PROCEDURE: CT head without contrast. TECHNIQUE: Multiple contiguous axial images were obtained through the brain without the use of intravenous contrast. Auto Exposure Controls were utilized during the CT exam to meet ALARA standards for radiation dose reduction. INDICATION: Repetitive falls with head injury. CT HEAD: CT images of the head were obtained. FINDINGS: Ventricles and sulci are within normal limits for size. There is no intracranial hemorrhage identified. There is no abnormal mass effect or shift of midline structures. IMPRESSION: Unremarkable CT of the head. Dictated by: Dictated on workstation # [id number]
--- NOTE | 2021-12-05 19:25 | Diagnostic Imaging Report ---
PROCEDURE: CT abdomen and pelvis with contrast. TECHNIQUE: Multiple contiguous axial images were obtained through the abdomen and pelvis after administration of intravenous contrast. Auto Exposure Controls were utilized during the CT exam to meet ALARA standards for radiation dose reduction. All CT scans use one or more of the following dose optimizing techniques: automated exposure control, MA and/or KvP adjustment based on patient size and exam type or iterative reconstruction. INDICATION: Fall with abdominal pain. FINDINGS: There is no evidence of focal hepatic or splenic injury. Pancreas, adrenal glands and kidneys are also unremarkable. Numerous stones and/or sludge are present within the lumen of the gallbladder without evidence of gallbladder wall thickening. No free fluid or hemoperitoneum is identified. There is a small fat-containing umbilical hernia. Urinary bladder is unremarkable in appearance without evidence of perivesicular hematoma. There is no evidence of fracture. IMPRESSION: No CT evidence of acute abdominal or pelvic visceral injury. Dictated by: Dictated on workstation # [id number]
--- NOTE | 2021-12-05 19:27 | Diagnostic Imaging Report ---
Indication: Fall with right knee injury and pain AP, oblique and lateral views of the right knee are obtained. FINDINGS: No acute fracture or dislocation is identified. No abnormal lytic or sclerotic focus is seen, and there is no radiopaque foreign body. IMPRESSION: No acute abnormality. Dictated by: Dictated on workstation # [id number]
[2021-12-05] MEDS ORDERED: ACHD5005 PO (19:33)
== END 2021-12-05 19:47 | disposition home or self-care (01) ==
LOC: EDUNIT# 17:41 → ER 17:43
DX: S30.1XXA Contusion of abdominal wall, initial encounter (principal); S00.83XA Contusion of other part of head, initial encounter; S80.211A Abrasion, right knee, initial encounter; M54.50 Low back pain, unspecified; Z23 Encounter for immunization; W17.89XA Other fall from one level to another, initial encounter; W22.8XXA Striking against or struck by other objects, initial encounter
CPT/HCPCS: 36415; 70450; 73562; 74177; 80053; 84703; 85025; 85610; 85730; 90715

== ENCOUNTER 2022-06-13 22:34 | Emergency (ER) | payer MEDICAID ==
[~2022-06-13] VITALS: Ht 162.6 cm; Wt 108.9 kg
--- NOTE | 2022-06-13 23:09 | ED Lower Extremity ---
General Chief Complaint: Lower Extremity Stated Complaint: LEFT LEG PAIN Nursing Triage Note: PT AMB TO RM 6 W REPORTS OF FALL IN OCTOBER 2021, C/O LEFT KNEE PAIN WORSE THIS PAST WEEK. PT REPORTS PAIN IS MOVING MORE POSTERIOR KNEE, FEELS/HEARS KNEE POPPING. PT A&OX4. Source: patient Exam Limitations: no limitations History of Present Illness Date Seen by Provider: Jun 13, 2022 Time Seen by Provider: 22:55 Initial Comments Patient is a 41yo female who presents to the ER with a complaint of left lateral knee pain. She states she fell through an attic in October of 2021; she states she was evaluated at [facility] and is scheduled to start Physical therapy on Jun 16. She states the knee is "popping" and hurting more and feels like it wants to "give out" on her. She is taking naproxen 500mg twice a day. Occasionally has to use crutches for weight bearing. She has chroni low back pain as well - no change in that. States the pain is in the lateral knee and behind the knee. Her leg occasionally swells. No calf pain, numbness. She has not seen orthopedics. Has only had xrays at [facility]. Using an over the counter cream "tiger balm" on the knee. No other complaints of recent illness or injury. Onset: other (months) Pain/Injury Location: left knee Method of Injury: fell (9 months ago) Modifying Factors: Worse With Movement Allergies and Home Medications Allergies Coded Allergies: No Known Drug Allergies (Unverified , 06/13/22) Patient Home Medication List Home Medication List Reviewed: Yes Clindamycin HCl (Clindamycin HCl) 300 Mg Capsule, 300 MG PO QID Prescribed by: TINA AYALA on 10/02/212013 Cyclobenzaprine HCl (Cyclobenzaprine HCl) 10 Mg Tablet, 10 MG PO TID Prescribed by: TINA AYALA on 10/21/21 163 Cyclobenzaprine HCl (Cyclobenzaprine HCl) 10 Mg Tablet, 10 MG PO Q8H PRN for SPASMS Prescribed by: CARYN QUARLES on 11/03/211922 Hydrocodone/Acetaminophen (Hydrocodone-Acetamin 5-325 mg) 5 Mg-325 Mg Tablet, 1 TAB PO Q4H PRN for PAIN-MODERATE (5-7) Prescribed by: TINA AYALA on 10/21/21 1632 Hydrocodone/Acetaminophen (Hydrocodone-Acetamin 5-325 mg) 5 Mg-325 Mg Tablet, 1 TAB PO Q4H PRN for PAIN-MODERATE (5-7) Prescribed by: TINA AYALA on 11/28/21 1511 Hydrocodone/Acetaminophen (Hydrocodone-Acetamin 5-325 mg) 5 Mg-325 Mg Tablet, 1 TAB PO Q4H PRN for PAIN-MODERATE (5-7) Prescribed by: TINA AYALA on 12/05/21 1933 Ibuprofen (Ibu) 600 Mg Tablet, 600 MG PO Q6H Prescribed by: TEA SCHWARTZ on 09/09/18 0941 Naproxen (Naproxen) 500 Mg Tablet, 500 MG PO BID Prescribed by: TINA AYALA on 10/21/21 1632 Naproxen (Naprosyn) 500 Mg Tablet, 500 MG PO BID Prescribed by: CARYN QUARLES on 11/03/21 192 Nitrofurantoin Monohyd/M-Cryst (Macrobid 100 mg Capsule) 100 Mg Capsule, 1 TAB PO BID Prescribed by: CARYN QUARLES on 11/03/211922 Ondansetron (Zofran Odt) 4 Mg Tab.rapdis, 4 MG SL Q8H PRN for NAUSEA/VOMITING- 1ST LINE, (Reported) Entered as Reported by: SHARLA CHANEY on 08/22/171852 Prednisone (Prednisone) 50 Mg Tab, 50 MG PO DAILY Prescribed by: TINA AYALA on 10/02/212013 Vit/Iron Fumarate/FA ( Tablet) 1 Each Tablet, 1 EACH PO DAILY, (Reported) Entered as Reported by: SHARLA CHANEY on 08/22/171852 Review of Systems Constitutional: see HPI EENTM: no symptoms reported Respiratory: no symptoms reported Cardiovascular: no symptoms reported Gastrointestinal: no symptoms reported Genitourinary: no symptoms reported Musculoskeletal: back pain (chronic), joint pain (left knee) All Other Systems Reviewed Negative Unless Noted: Yes Past Isaexea-Cyaspq-Ucnlbz Hx Patient Social History Tobacco Use?: No Use of E-Cig and/or Vaping dev: Yes E-Cig or Vaping type used: Nicotine Use of E-Cig and/or Vaping Kwesi: Current Everyday User Substance use?: No Alcohol Use?: Yes Alcohol Frequency: Once in a while Immunizations Up To Date Influenza Vaccine Up-to-Date: No; Not Current First/Initial COVID19 Vaccinat: 2020 Second COVID19 Vaccination Earnest: 2020 Third COVID19 Vaccination Date: none 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 Seasonal Allergies Seasonal Allergies: Yes Past Medical History Surgery/Hospitalization HX: SX: T/A Surgeries: Yes Respiratory: No Cardiac: No Neurological: No Last Menstrual Period: May 27, 2021 Sexually Transmitted Disease: No HIV/AIDS: No Genitourinary: No Gastrointestinal: Yes Gastroesophageal Reflux Musculoskeletal: No Endocrine: No HEENT: No Cancer: No Psychosocial: No Integumentary: No Blood Disorders: No Adverse Reaction/Blood Tranf: No Family Medical History Diabetes mellitus 19 FATHER FH: testicular cancer Hypertension 19 FATHER Physical Exam Vital Signs Vital Signs - First Documented 06/13/22 22:49 Temp 36.5 Pulse 106 Resp 20 B/P (MAP) 126/80 (95) Pulse Ox 97 O2 Delivery Room Air Capillary Refill : Less Than 3 Seconds Height, Weight, BMI Height: 5'4.00" Weight: 251lbs. 2.0oz. [id number]; 41.00 BMI Method: General Appearance: WD/WN, no apparent distress, obese HEENT: PERRL/EOMI Cardiovascular: regular rate, rhythm Respiratory: lungs clear, normal breath sounds, no respiratory distress, no accessory muscle use Hips: bilateral hip normal range of motion Legs: bilateral leg normal inspection, bilateral leg swelling Knees: left knee other (lateral joint line tenderness; pain with varus stress at joint line. (exam limited due to patient size and apprehension). neg anterior and posterior drawer) Ankles: bilateral ankle normal inspection, bilateral ankle normal range of motion Feet: bilateral foot normal inspection, bilateral foot normal range of motion Neurologic/Psychiatric: alert, normal mood/affect, oriented x 3 Skin: normal color, warm/dry Progress/Results/Core Measures Results/Orders My Orders Orders - NE GAMBOA MD Naproxen Tablet (Naprosyn Tablet) (06/13/22 23:15) Vital Signs/I&O 06/13/22 22:49 Temp 36.5 Pulse 106 Resp 20 B/P (MAP) 126/80 (95) Pulse Ox 97 O2 Delivery Room Air Blood Pressure Mean: 95 Departure Impression Primary Impression: Internal derangement of left knee Disposition: HOME, SELF-CARE Condition: Stable Departure-Patient Inst. Decision time for Depature: 23:10 Referrals: [facility] [place] ([place]/Family) Primary Care Physician CHANI HSU MD, MICHAEL P MD Patient Instructions: Internal Derangement of the Knee Add. Discharge Instructions: You can get an over the counter knee sleeve, which may provide some support to the knee as you walk. Use over the counter Voltaren Gel (Diclofenac) as directed on the packaging. Continue your Naproxen (always take with food) twice a day. Alternate Ice and heat; also elevate the left leg to reduce swelling. I have attached information for the Orthopedic doctors here at [facility]; you can call for follow up - you may need an MRI to further evaluate the possible damage to the knee joint. Return to the ER for re-evaluation if the knee "locks up", becomes more red, swollen or for any other emergent, concerning symptoms. Copy Copies To 1: NITA GUZMAN KATHRYN M MD Jun 13, 2022 23:09
[2022-06-13] MEDS ORDERED: NAPROXEN 250 MG (NAPROSYN) TABLET PO ONE (23:15)
[2022-06-13 23:23] VITALS: BP 112/65
== END 2022-06-13 23:23 | disposition home or self-care (01) ==
LOC: EDUNIT# 22:34 → ER 22:37
DX: M23.92 Unspecified internal derangement of left knee (principal); E66.9 Obesity, unspecified; F17.290 Nicotine dependence, other tobacco product, uncomplicated; Z68.41 Body mass index [BMI] 40.0-44.9, adult
CPT/HCPCS: 99283

== ENCOUNTER 2023-03-04 19:25 | Emergency (ER) | payer MEDICAID ==
[~2023-03-04] VITALS: Ht 162 cm; Wt 107.0 kg
[2023-03-04 19:30] VITALS: BP 119/87
--- NOTE | 2023-03-04 19:42 | ED Integumentary General ---
General Chief Complaint: Skin/Wound Problems Stated Complaint: LT LEG LAC Nursing Triage Note: PATIENT STATES LAST NIGHT CUT LEFT LOWER LEG WHILE SHAVING. STATES HAS NOT STOPPED BLEEDING SINCE. PATIENT DENIES BEING ON BLOOD THINNER. STATES LAST WEEK WAS PUT ON ANITBIOTICS FOR LOWER LEFT LEG CELLULITIS. Source: patient Exam Limitations: no limitations (JOSEPH SHETTY APRN) History of Present Illness Date Seen by Provider: Mar 04, 2023 Time Seen by Provider: 19:31 Initial Comments 42-year-old female presents to the ER with concern of a cut to her left lower leg that would not stop bleeding. She reports that she cut it last night while shaving, and it has continued to bleed. She does not take any blood thinners. Reports that it is mostly been a clear drainage with pink tinge. Her legs are swollen bilaterally. She is currently on Augmentin antibiotic for cellulitis of her lower leg. (JOSEPH SHETTY APRN) Allergies and Home Medications Allergies Coded Allergies: No Known Drug Allergies (Unverified , 06/13/22) Patient Home Medication List Home Medication List Reviewed: Yes (JOSEPH SHETTY APRN) Clindamycin HCl (Clindamycin HCl) 300 Mg Capsule, 300 MG PO QID Prescribed by: TINA AYALA on 10/02/212013 Cyclobenzaprine HCl (Cyclobenzaprine HCl) 10 Mg Tablet, 10 MG PO TID Prescribed by: TINA AYALA on 10/21/21 163 Cyclobenzaprine HCl (Cyclobenzaprine HCl) 10 Mg Tablet, 10 MG PO Q8H PRN for SPASMS Prescribed by: CARYN QUARLES on 11/03/21 1923 Hydrocodone/Acetaminophen (Hydrocodone-Acetamin 5-325 mg) 5 Mg-325 Mg Tablet, 1 TAB PO Q4H PRN for PAIN-MODERATE (5-7) Prescribed by: TINA AYALA on 10/21/21 1632 Hydrocodone/Acetaminophen (Hydrocodone-Acetamin 5-325 mg) 5 Mg-325 Mg Tablet, 1 TAB PO Q4H PRN for PAIN-MODERATE (5-7) Prescribed by: TINA AYALA on 11/28/21 1511 Hydrocodone/Acetaminophen (Hydrocodone-Acetamin 5-325 mg) 5 Mg-325 Mg Tablet, 1 TAB PO Q4H PRN for PAIN-MODERATE (5-7) Prescribed by: TINA AYALA on 12/05/21 193 Ibuprofen (Ibu) 600 Mg Tablet, 600 MG PO Q6H Prescribed by: TEA SCHWARTZ on 09/09/18 0941 Naproxen (Naproxen) 500 Mg Tablet, 500 MG PO BID Prescribed by: TINA AYALA on 10/21/21 163 Naproxen (Naprosyn) 500 Mg Tablet, 500 MG PO BID Prescribed by: CARYN QUARLES on 11/03/21 192 Nitrofurantoin Monohyd/M-Cryst (Macrobid 100 mg Capsule) 100 Mg Capsule, 1 TAB PO BID Prescribed by: CARYN QUARLES on 11/03/211922 Ondansetron (Zofran Odt) 4 Mg Tab.rapdis, 4 MG SL Q8H PRN for NAUSEA/VOMITING- 1ST LINE, (Reported) Entered as Reported by: SHARLA CHANEY on 08/22/171852 Prednisone (Prednisone) 50 Mg Tab, 50 MG PO DAILY Prescribed by: TINA AYALA on 10/02/212013 Vit/Iron Fumarate/FA ( Tablet) 1 Each Tablet, 1 EACH PO DAILY, (Reported) Entered as Reported by: SHARLA CHANEY on 08/22/171852 Review of Systems Review of Systems Constitutional: see HPI (JOSEPH SHETTY APRN) Past Lfwsevl-Xawklo-Sqvypx Hx Patient Social History Tobacco Use?: No Use of E-Cig and/or Vaping dev: Yes E-Cig or Vaping type used: Nicotine (JOSEPH SHETTY APRN) Immunizations Up To Date Influenza Vaccine Up-to-Date: No; Not Current First/Initial COVID19 Vaccinat: 2020 Second COVID19 Vaccination Earnest: 2020 Third COVID19 Vaccination Date: none (JOSEPH SHETTY APRN) Seasonal Allergies Seasonal Allergies: Yes (JOSEPH SHETTY APRN) Past Medical History Surgery/Hospitalization HX: SX: T/A Surgeries: Yes Respiratory: No Cardiac: No Neurological: No Sexually Transmitted Disease: No HIV/AIDS: No Genitourinary: No Gastrointestinal: Yes Gastroesophageal Reflux Musculoskeletal: No Endocrine: No HEENT: No Cancer: No Psychosocial: No Integumentary: No Blood Disorders: No Adverse Reaction/Blood Tranf: No (JOSEPH SHETTY APRN) Family Medical History Diabetes mellitus 19 FATHER FH: testicular cancer Hypertension 19 FATHER Physical Exam Vital Signs Vital Signs - First Documented 03/04/23 19:30 Temp 36.6 Pulse 104 Resp 20 B/P (MAP) 119/87 (98) Pulse Ox 100 O2 Delivery Room Air (GENA,DEE K DO) Vital Signs Capillary Refill : Less Than 3 Seconds (JOSEPH SHETTY APRN) General Appearance: WD/WN, no apparent distress Neck: supple, normal inspection Cardiovascular: regular rate, rhythm Respiratory: lungs clear, normal breath sounds, no respiratory distress, no accessory muscle use Extremities: normal range of motion, other (Erythema, abrasion from shaving noted to left lower extremity) Neurologic/Psychiatric: alert, normal mood/affect Skin: normal color, warm/dry, other Skin Problem Location: lower extremities (Left lower extremity) Skin Problem Character: other (Cut from razor) (JOSEPH SHETTY APRN) Progress/Results/Core Measures Results/Orders Vital Signs/I&O 03/04/23 19:30 Temp 36.6 Pulse 104 Resp 20 B/P (MAP) 119/87 (98) Pulse Ox 100 O2 Delivery Room Air (GENA,DEE K DO) Blood Pressure Mean: 98 Progress Progress Note : Progress Note Patient seen and evaluated resting comfortably in bed, no acute distress. Discussed, no significant bleeding. Wound cleaned and dressed with pressure dressing. Will monitor at this time. 2030 wound reevaluated, no bleeding at this time. Very small amount of serosanguineous drainage noted to bandage. Wound redressed. Patient instructed to continue monitoring the wound and her cellulitis and to continue her antibiotic. She informed to return if the redness spreads or she develops a fever. Patient is stable for discharge. Discharge instructions and return precautions provided. (JOSEPH SHETTY APRN) Departure Impression Primary Impression: Encounter for evaluation of wound Disposition: HOME, SELF-CARE Condition: Stable Departure-Patient Inst. Decision time for Depature: 20:33 (JOSEPH SHETTY APRN) Referrals: [facility] (PCP/Family) Primary Care Physician Patient Instructions: Wound Care (DC) Add. Discharge Instructions: Keep the dressing in place until tomorrow morning. You may then remove the d ressing and place a bandage. Return if the redness of your lower leg spreads, you develop a fever, the discharge turns to thick green or yellow discharge, or any other new, concerning, or worsening symptoms. All discharge instructions reviewed with patient and/or family. Voiced understanding. ATTENDING PHYSICIAN NOTE: I WAS PHYSICALLY PRESENT ER PHYSICIAN, BUT I WAS NOT INVOLVED IN ANY DECISION MAKING OR ANY CARE OF THIS PATIENT AND I AM NOT COLLABORATING PHYSICIAN. (DEE AVERY DO) JOSEPH SHETTY APRN Mar 04, 2023 19:42 DEE AVERY DO Mar 05, 2023 05:00
== END 2023-03-04 20:38 | disposition home or self-care (01) ==
LOC: EDUNIT# 19:25 → ER 19:27
DX: Z48.00 Encounter for change or removal of nonsurgical wound dressing (principal); L03.115 Cellulitis of right lower limb
CPT/HCPCS: 99282

== ENCOUNTER → 2023-03-17 | Outpatient (CLI) | payer MEDICAID ==
--- NOTE | 2023-03-17 14:09 | Diagnostic Imaging Report ---
PROCEDURE: US left lower extremity venous. TECHNIQUE: Multiple real-time grayscale images were obtained over the left lower extremity in various projections. Additional duplex Doppler and color Doppler images were also obtained. INDICATION: Left lower extremity erythema and edema EXAMINATION: Grayscale and color Doppler evaluation of the deep veins of the left lower extremity were performed with waveform analysis. FINDINGS: Continuous venous flow is present. No intraluminal filling defect is identified. There is normal compressibility and response to augmentation. No abnormal perivascular fluid collection is identified. IMPRESSION: No ultrasound evidence of left lower extremity deep venous thrombosis. Dictated by: Dictated on workstation # [id number]
== END ==
LOC: RAD 13:17
PROVIDERS: ATTEND Nurse Practitioner Family
DX: M79.89 Other specified soft tissue disorders (principal); R60.0 Localized edema; L53.9 Erythematous condition, unspecified